=== PATIENT | female | born 1940 | race Caucasian/White ===

== ENCOUNTER 2017-11-20 12:04 | Outpatient (CLI) | payer MEDICARE ==
[2017-11-20 13:20] LABS: Hemoglobin 7.8 g/dL (12.0-16.0); Mean Corpuscular HGB CONC 29.2 g/dL (32.0-36.0); Mean Corpuscular Hemoglobin 18.7 pg (27.0-31.0); Mean Platelet Volume 4.3 fL (7.4-10.4); Platelet Count 298 thou/uL (130-400); Red Blood Cell (RBC) Count 4.15 mill/uL (4.20-5.40); White Blood Cell (WBC) Count 7.2 thou/uL (4.8-10.8)
[2017-11-20 13:22] LABS: INR-International Normal Ratio 1.1
[2017-11-20 13:26] LABS: PTT 26.4 SEC (22.9-36.1)
[2017-11-20 13:42] LABS: ALT (SGPT) 12 U/L (8-55); AST (SGOT) 19 U/L (5-34); Alkaline Phosphatase 47 U/L (40-150); Anion Gap 12 mmol/L (10-20); BUN (Urea Nitrogen) 10 mg/dL (9.8-20.1); Bilirubin, Total 1.1 mg/dL (0.2-1.2); Calc. Creatinine Clearance 0 mL/min (70-130); Carbon Dioxide 32 mmol/L (23-31); Chloride 101 mmol/L (98-107); Estimated GFR-MDRD 60; Globulin 2.5 g/dL (2.4-3.5); Glucose 116 mg/dL (83-110); Potassium 3.1 mmol/L (3.5-5.1); Protein, Total 6.5 g/dL (6.0-8.3); Sodium 142 mmol/L (136-145)
--- NOTE | 2017-12-03 22:51 | EKG ---
Test Reason : Blood Pressure : / mmHG Vent. Rate : 089 BPM Atrial Rate : 089 BPM P-R Int : 160 ms QRS Dur : 152 ms QT Int : 440 ms P-R-T Axes : 084 058 070 degrees QTc Int : 535 ms Normal sinus rhythm Possible Left atrial enlargement Left bundle branch block Abnormal ECG When compared with ECG of 11-OCT-2016 19:23, T wave inversion less evident in Lateral leads QT has lengthened Confirmed by Janice ELLER ([id number]) on 12/03/2017 10:51:20 PM Referred By: GUILHERME Confirmed By:Janice ELLER
== END 2017-11-20 12:05 | disposition home or self-care (01) ==
LOC: LABBT 12:04
PROVIDERS: ATTEND Internal Medicine Cardiovascular Disease
DX: Z01.818 Encounter for other preprocedural examination (principal); R06.02 Shortness of breath
CPT/HCPCS: 80053; 85027; 85610; 85730; 93005; 93010

== ENCOUNTER 2017-11-27 11:39 | Emergency (ER) | payer MEDICARE ==
[2017-11-27 12:17] LABS: #Eosinphils 0.1 thou/uL (0.0-0.7); #Lymphocytes 0.8 thou/uL (1.20-3.40); #Monocytes 0.4 thou/uL (0.11-0.59); #Neutrophils 5.3 thou/uL (1.40-6.50); %Basophils 0.3 % (0.0-1.0); %Eosinophils 1.5 % (0.0-10.0); %Lymphocytes 11.9 % (21.0-51.0); %Monocytes 5.7 % (0.0-10.0); %Neutrophils 80.6 % (42.0-75.0); Hemoglobin 8.3 g/dL (12.0-16.0); Mean Corpuscular Hemoglobin 18.6 pg (27.0-31.0); Mean Corpuscular Volume 64.2 fl (81.0-99.0); Platelet Count 312 thou/uL (130-400); RBC Distribution Width 18.7 % (11.5-14.5); Red Blood Cell (RBC) Count 4.46 mill/uL (4.20-5.40); White Blood Cell (WBC) Count 6.5 thou/uL (4.8-10.8)
[2017-11-27 12:33] LABS: Hypochromia MODERATE=16-30 cells (100X) (0-5/hpf); Microcytosis MODERATE=15-30 cells (100X) (0-5/hpf); Ovalocytes SLIGHT = 2-5 cells (100X) (0-1/hpf); PLT Morphology Comment Appears Adequate
[2017-11-27 12:38] LABS: ALT (SGPT) 13 U/L (8-55); AST (SGOT) 21 U/L (5-34); Albumin 4.2 g/dL (3.4-4.8); Alkaline Phosphatase 47 U/L (40-150); Anion Gap 11 mmol/L (10-20); BUN (Urea Nitrogen) 8 mg/dL (9.8-20.1); Bilirubin, Total 0.8 mg/dL (0.2-1.2); CK (CPK) 79 U/L (29-168); Calc. Creatinine Clearance 0 mL/min (70-130); Calcium 9.9 mg/dL (7.8-10.44); Carbon Dioxide 32 mmol/L (23-31); Chloride 102 mmol/L (98-107); Estimated GFR-MDRD 65; Globulin 2.6 g/dL (2.4-3.5); Glucose 105 mg/dL (83-110); Potassium 3.5 mmol/L (3.5-5.1); Protein, Total 6.8 g/dL (6.0-8.3); Sodium 141 mmol/L (136-145)
[2017-11-27 12:40] LABS: CKMB 2.8 ng/mL (0-6.6); Troponin I Less than 0.010 ng/mL (< 0.028)
--- NOTE | 2017-11-27 13:04 | RAD ---
PORTABLE CHEST 1 VIEW: Date: 11/27/17 Time: 1159 hours HISTORY: Chest pain. Shortness of breath. FINDINGS: Comparison made with exam of 10/11/16/ The heart size is normal. The aorta is tortuous. Stent in the proximal aorta is again seen. Lungs are well expanded with stable chronic change. No focal areas of consolidation, pneumothoraces, or pleura l effusions are seen. IMPRESSION: No acute process. POS: [facility]
--- NOTE | 2017-11-27 13:50 | CT ---
CTA AORTIC DISSECTION PROTOCOL UTILIZING iv CONTRAST AND 3D REFORMATTED IMAGING. INDICATION: History of chest pain and anemia. FINDINGS: No central pulmonary embolus is evident. No acute aortic stenosis, occlusion, or aneurysmal formatio n is noted. There is an endograft stent involving the proximal left ventricular outflow tract and pr oximal aorta. There are vascular calcifications involving the thoracic aorta. The aortic arch measu res 2.7 cm. The ascending aorta at the level of the right main pulmonary artery measures 3.7 cm. Th e descending thoracic aorta at the level of the right main pulmonary artery measures 2.3 cm. The triston iac and SMA are patent. Renal arteries bilaterally are patent. IRA is patent. There is scattered emphysema. There is a spiculated pulmonary nodule within the posterior segment of the right upper lobe measuring 1.6 x 1.8 cm. No additional suspicious pulmonary nodule is grossly e vident. There is scattered degenerative and osteoarthritic change. There is mild thoracolumbar curv ature. IMPRESSION: 1. No acute aortic stenosis, occlusion, or aneurysmal formation. 2. Severe emphysema. 3. Spiculated pulmonary nodule of the right upper lobe is suspicious for malignancy. Followup PET C T and pulmonary consultation is recommended. 4. Cholecystectomy. 5. Other chronic findings as above. POS: [facility]
[2017-11-27] MEDS ORDERED: ISOVUE-370 76%-LOCM 1 ML ONE (16:24)
== END 2017-11-27 15:02 | disposition home or self-care (01) ==
LOC: ERS 11:39
DX: D64.9 Anemia, unspecified (principal); R06.02 Shortness of breath; J44.9 Chronic obstructive pulmonary disease, unspecified; E78.5 Hyperlipidemia, unspecified; Z79.899 Other long term (current) drug therapy; Z79.82 Long term (current) use of aspirin
CPT/HCPCS: 36415; 71045; 71275; 80053; 82274; 82550; 82553; 84484; 85025; 85060; 86850; 86900; 86901; 93005; 94760

== ENCOUNTER 2017-12-01 12:40 | Inpatient (IN) | payer MEDICARE ==
[2017-12-01 13:27] LABS: #Lymphocytes 0.5 thou/uL (1.20-3.40); #Monocytes 0.2 thou/uL (0.11-0.59); #Neutrophils 6.6 thou/uL (1.40-6.50); %Basophils 0.5 % (0.0-1.0); %Eosinophils 0.3 % (0.0-10.0); %Lymphocytes 6.8 % (21.0-51.0); %Monocytes 3.2 % (0.0-10.0); %Neutrophils 89.2 % (42.0-75.0); Hemoglobin 7.5 g/dL (12.0-16.0); Mean Corpuscular HGB CONC 28.9 g/dL (32.0-36.0); Mean Corpuscular Hemoglobin 18.3 pg (27.0-31.0); Mean Corpuscular Volume 63.3 fl (81.0-99.0); Mean Platelet Volume 4.5 fL (7.4-10.4); Platelet Count 270 thou/uL (130-400); RBC Distribution Width 18.9 % (11.5-14.5); White Blood Cell (WBC) Count 7.4 thou/uL (4.8-10.8)
[2017-12-01 13:39] LABS: PTT 28.7 SEC (22.9-36.1)
[2017-12-01 13:40] LABS: INR-International Normal Ratio 1.1
[2017-12-01 13:46] LABS: ALT (SGPT) 14 U/L (8-55); AST (SGOT) 21 U/L (5-34); Alkaline Phosphatase 44 U/L (40-150); Anion Gap 11 mmol/L (10-20); BUN (Urea Nitrogen) 9 mg/dL (9.8-20.1); Bilirubin, Total 0.7 mg/dL (0.2-1.2); Calc. Creatinine Clearance 0 mL/min (70-130); Calcium 9.7 mg/dL (7.8-10.44); Carbon Dioxide 32 mmol/L (23-31); Chloride 103 mmol/L (98-107); Estimated GFR-MDRD 67; Globulin 2.4 g/dL (2.4-3.5); Glucose 136 mg/dL (83-110); Lipase 34 U/L (8-78); Potassium 3.1 mmol/L (3.5-5.1); Protein, Total 6.4 g/dL (6.0-8.3); Sodium 143 mmol/L (136-145)
[2017-12-01 13:49] LABS: Hypochromia MODERATE=16-30 cells (100X) (0-5/hpf); MDiff Complete? YES; Microcytosis MARKED = >30 cells (100X) (0-5/hpf); Ovalocytes MODERATE= 6-15 cells (100X) (0-1/hpf); PLT Morphology Comment Appears Adequate; Polychromasia SLIGHT = 2-3 cells (100X) (0-2/hpf); Reflex for Review?? YES
[2017-12-01 13:50] LABS: CKMB 2.5 ng/mL (0-6.6); Troponin I Less than 0.010 ng/mL (< 0.028)
[2017-12-01] MEDS ORDERED: Potassium Chloride 20 MEQ TAB ONE (15:34)
--- NOTE | 2017-12-01 15:36 | PDOC.EVN ---
Event Note - Event Note Event Note: [id number] H&P Dictated chest pain cad anemia lung nodule htn plan: see orders
[2017-12-01] MEDS ORDERED: Acetaminophen 325 MG TAB PO PRN (15:37)
[2017-12-01 16:12] LABS: Bilirubin Negative (Negative); Blood, Urine Negative (Negative); Clarity TURBID (Clear); Glucose, Urine (Dipstick) Negative (Negative); Leukocyte Small (Negative); Nitrite Negative (Negative); Protein, Urine (Dipstick) Negative (Neg-Trace); Specific Gravity, Urine 1.015 (1.002-1.036); Urobilinogen 0.2 mg/dL (0.2-1.0)
[2017-12-01 16:13] LABS: Bacteria/HPF None Seen HPF (None Seen); Hyaline Casts/LPF 0-3 HYALINE CAST LPF (0-3 Hyaline); Pathc Cast-AUWi Flag 0.43 (0-2.49); Squamous Epithelial 0-3 HPF (0-3)
[2017-12-01 16:21] LABS: Crystals/HPF 4+ AMORPH PHOS HPF (Negative)
[2017-12-01 16:22] LABS: Renal Epithelial None Seen HPF (0-3); Transitional Epithelial NONE SEEN HPF (0-3)
[2017-12-01 16:26] LABS: Troponin I 0.011 ng/mL (< 0.028)
[2017-12-01] MEDS ORDERED: Azithromycin 500 MG in Sodium Chloride 0.9% 250 ML 250 ML IVPB SCH (18:00)
[2017-12-01] MEDS: Mometasone/Formoterol 120 PUFF INHALER INH SCH (19:28)
[2017-12-01] MEDS: Rosuvastatin 20 MG TAB PO SCH (22:05)
[2017-12-01 22:29] VITALS: BMI 21.4
[2017-12-01 22:42] LABS: Troponin I Less than 0.010 ng/mL (< 0.028)
[2017-12-02 05:15] LABS: #Basophils 0.1 thou/uL (0.0-0.2); #Eosinphils 0.2 thou/uL (0.0-0.7); #Lymphocytes 1.3 thou/uL (1.20-3.40); #Monocytes 0.5 thou/uL (0.11-0.59); %Basophils 1.2 % (0.0-1.0); %Eosinophils 3.6 % (0.0-10.0); %Lymphocytes 25.8 % (21.0-51.0); %Monocytes 9.4 % (0.0-10.0); %Neutrophils 60.1 % (42.0-75.0); Hemoglobin 7.6 g/dL (12.0-16.0); Mean Corpuscular HGB CONC 29.6 g/dL (32.0-36.0); Mean Corpuscular Hemoglobin 19.4 pg (27.0-31.0); Mean Corpuscular Volume 65.6 fl (81.0-99.0); Mean Platelet Volume 4.5 fL (7.4-10.4); Platelet Count 234 thou/uL (130-400); RBC Distribution Width 20.4 % (11.5-14.5); Red Blood Cell (RBC) Count 3.89 mill/uL (4.20-5.40)
[2017-12-02 05:22] LABS: Anion Gap 6 mmol/L (10-20); BUN (Urea Nitrogen) 11 mg/dL (9.8-20.1); Calc. Creatinine Clearance 54 mL/min (70-130); Calcium 8.5 mg/dL (7.8-10.44); Carbon Dioxide 34 mmol/L (23-31); Chloride 106 mmol/L (98-107); Estimated GFR-MDRD 75; Glucose 85 mg/dL (83-110); Potassium 3.7 mmol/L (3.5-5.1); Sodium 142 mmol/L (136-145)
[2017-12-02 05:41] LABS: Troponin I Less than 0.010 ng/mL (< 0.028)
[2017-12-02] MEDS: Mometasone/Formoterol 120 PUFF INHALER INH SCH ×2 (06:37→22:55)
[2017-12-02] MEDS ORDERED: Spiriva 18 MCG CAP (Box of 5 Caps) INH SCH (09:00)
[2017-12-02] MEDS: Azithromycin 250 MG TAB PO SCH (09:08)
--- NOTE | 2017-12-02 13:59 | PDOC.PN ---
- Subjective Encounter Start Date: 12/02/17 Encounter Start Time: 08:40 Pt seen for followup re: anemia. Denies chest pain. SOBOE+. - Objective MAR Reviewed: Yes Vital Signs & Weight: Vital Signs (12 hours) Temp Pulse Resp BP Pulse Ox 12/02/17 13:30 74 16 97 12/02/17 11:30 98.4 F 84 16 112/56 L 95 12/02/17 09:56 78 16 98 12/02/17 08:10 98.1 F 77 16 95 12/02/17 08:08 98.1 F 77 16 149/66 H 12/02/17 06:37 83 16 97 12/02/17 06:35 83 16 97 12/02/17 04:00 98.0 F 75 18 136/63 97 Weight Admit Weight 125 lb Weight 125 lb I&O: 12/01/17 12/02/17 12/03/17 06:59 06:59 06:59 Intake Total 490 0 Output Total 250 Balance 240 0 Result Diagrams: 12/02/17 22:40 12/02/17 05:01 EKG Reviewed by me: Yes (Tele: NSR) Phys Exam - Physical Examination Constitutional: NAD HEENT: PERRLA, moist MMs, sclera anicteric, oral pharynx no lesions Neck: no nodes, no JVD, supple, full ROM Respiratory: no wheezing, no rales, no rhonchi, clear to auscultation bilateral Decreased air entry deborah bases Cardiovascular: RRR, no rub Gastrointestinal: soft, non-tender, no distention, positive bowel sounds Neurological: moves all 4 limbs Psychiatric: normal affect Dx/Plan (1) Anemia Code(s): D64.9 - ANEMIA, UNSPECIFIED Status: Acute Comment: For scope studies today; Hb improved to 9.6 yesterday, check labs tomorrow. s/p PRBC transfusion. (2) Lung nodule Code(s): R91.1 - SOLITARY PULMONARY NODULE Status: Acute Comment: Pulmonology following (3) COPD (chronic obstructive pulmonary disease) Status: Chronic Comment: stable (4) Dyslipidemia Code(s): E78.5 - HYPERLIPIDEMIA, UNSPECIFIED Status: Chronic Comment: on statin (5) GERD (gastroesophageal reflux disease) Code(s): K21.9 - GASTRO-ESOPHAGEAL REFLUX DISEASE WITHOUT ESOPHAGITIS Status: Chronic Comment: continue PPI (6) RLS (restless legs syndrome) Status: Chronic - Plan * . Review of Systems - Review of Systems Constitutional: negative: fever, chills, sweats, weakness, malaise Respiratory: Cough, Shortness of Breath, SOB with Excertion. negative: Hemoptysis, Pleuritic Pain, Wheezing Cardiovascular: negative: chest pain, palpitations, orthopnea, paroxysmal nocturnal dyspnea, edema, light headedness Gastrointestinal: negative: Nausea, Vomiting, Abdominal Pain, Diarrhea, Constipation, Melena, Hematochezia Genitourinary: negative: Dysuria, Frequency, Incontinence, Hematuria, Retention - Medications/Allergies Allergies/Adverse Reactions: Allergies Allergy/AdvReac Type Severity Reaction Status Date / Time cephalexin Allergy Verified 11/20/17 12:29 levofloxacin [From Levaquin] Allergy Verified 11/20/17 12:29 pravastatin [From Pravachol] Allergy Verified 11/20/17 12:29 Medications: Current Medications Acetaminophen (Tylenol) 650 mg PO Q4H PRN PRN Reason: Headache/Fever or Pain Albuterol/Ipratropium (Duoneb) 3 ml NEB QID-RT [facility] Last Admin: 12/02/17 13:30 Dose: 3 ml Aspirin (Aspirin Chewable) 81 mg PO DAILY [facility] Last Admin: 12/02/17 09:08 Dose: 81 mg Azithromycin (Zithromax) 250 mg PO DAILY [facility] Stop: 12/05/17 09:01 Last Admin: 12/02/17 09:08 Dose: 250 mg Isosorbide Mononitrate (Imdur Er) 30 mg PO DAILY [facility] Last Admin: 12/02/17 09:08 Dose: 30 mg Mometasone Furoate/Formoterol Fumar (Dulera 100 Mcg/5 Mcg Inhaler) 2 puff INH BID-RT [facility] Last Admin: 12/02/17 06:37 Dose: 2 puff Pantoprazole Sodium (Protonix) 40 mg PO DAILY [facility] Last Admin: 12/02/17 09:08 Dose: 40 mg Rosuvastatin Calcium (Crestor) 20 mg PO HS [facility] Last Admin: 12/01/17 22:05 Dose: 20 mg
--- NOTE | 2017-12-02 14:06 | HP ---
DATE OF ADMISSION: 12/01/2017 CHIEF COMPLAINT: Dyspnea, chest pain. HISTORY OF PRESENT ILLNESS: The patient is a 77-year-old female with past medical history of COPD, c hronic respiratory failure, coronary artery disease, gastritis, aortic stenosis, now came to the ER c omplaining of chest pain and dyspnea. The patient said she is having intermittent dyspnea and chest pain. The patient was diagnosed having anemia, so the patient went to the PCP for routine blood work and blood work showed she was anemic, so the patient was advised to come to the ER, chest pain persi sted, substernal, intermittent kind of pain, worsens with movement. Denies any radiation, complains of dyspnea even with minimal exertion. The patient also complains of cough, cough with sputum produc tion, sputum white in color. Denies fever, denies chills, denies nausea, denies any vomiting, denies any diarrhea, denies any dizziness, denies any palpations. PAST MEDICAL HISTORY: As per HPI. PAST SURGICAL HISTORY: Reviewed. SOCIAL HISTORY: Denies smoking, denies any alcohol, denies any drugs. FAMILY HISTORY: Positive for heart problems. MEDICATIONS: Reviewed. REVIEW OF SYSTEMS: Constitutional: Denies any fever, denies any chills. Positive for fatigue. Eye s: Denies vision problems. Ears: Denies any hearing loss. Neck: Denies any neck pain. Cardiovas cular System: Positive for chest pain. Respiratory System: Positive for cough and sputum productio n. Musculoskeletal: Denies any joint deformities. Cranial Nerve System: Denies syncope. Psychiat ry: Denies anxiety. Integumentary: Denies any rash. Genitourinary: Denies any dysuria. All othe r review of systems are reviewed and are negative. PHYSICAL EXAMINATION: CONSTITUTIONAL AND VITAL SIGNS: At the time of H and P performed, blood pressure is 125/56, pulse ox 95% on 3 L, respiratory rate 18. GENERAL: The patient appears tired. HEENT: Anterior naris patent. NECK: Supple, no JVD. CARDIOVASCULAR: S1, S2 present. Positive for murmur, no rubs, no gallops. RESPIRATORY: Diminished breath sounds present bilaterally. Positive for crackles. No wheezing, no rhonchi. GASTROINTESTINAL: Abdomen is soft, nontender, no guarding, no organomegaly, no masses felt. MUSCULOSKELETAL: No edema. CRANIAL NERVE SYSTEM: Awake, follows commands. Speech clear. PSYCHIATRIC: Mood is appropriate at this time. INTEGUMENTARY: No obvious rash seen. GENITOURINARY: No suprapubic tenderness. LABORATORY DATA: At the time of H and P performed, white count 7.4, hemoglobin 7.5, platelet count i s 270. PT 14, INR 1.1. Sodium 143, potassium 3.1, chloride 103, CO2 of 32, BUN of 9, creatinine 0.8 . Troponin less than 0.010. Has a CT chest recently done on 11/27, positive for severe emphysema an d positive for pulmonary nodule in the right upper lobe, suspicious for malignancy. ASSESSMENT AND PLAN: The patient is 77 years old female. 1. Acute on chronic anemia. Plan to type and cross and transfuse 1 unit of packed red blood cells a s the patient is symptomatic. Plan to monitor hemoglobin closely, plan to check stool occult blood, and plan to consult GI to evaluate the patient. 2. Chest pain, probably secondary to symptomatic anemia. Plan to check serial cardiac enzymes. Benedict n to consult Cardiology to evaluate the patient. 3. Lung nodule, rule out mass plus history of chronic obstructive pulmonary disease. Continue breat marissa treatments. Plan to start the patient on intravenous Zithromax and plan to consult Pulmonary to evaluate the patient and continue breathing treatments. 4. History of coronary artery disease. Continue home medications. Case was discussed in detail with the patient.
--- NOTE | 2017-12-02 14:14 | CON ---
DATE OF CONSULTATION: 12/02/2017 REASON FOR CONSULTATION: Chest pain and shortness of breath. HISTORY OF PRESENT ILLNESS: Ms. Frausto is a very pleasant 77-year-old woman with previous history of CAD, status post stent placement, in addition to a TAVR performed in [place]. She recently presented with shortness of breath. She was seen and evaluated in the office. She unde rwent noninvasive stress study that was negative for ischemia. She was treated medically and failed medical treatment. It was then decided to proceed with angiography. In the preop studies, patient d id have a hemoglobin of 7.5. It was decided that her shortness of breath was most likely related to her anemia and angiography was deferred. PAST MEDICAL HISTORY: As above including hyperlipidemia, previous tobacco abuse, COPD, cholecystecto my, hysterectomy, previous bleeding ulcer, anemia, asthma, acid reflux, TAVR. ALLERGIES: DEXAMETHASONE, PRAVASTATIN, CEPHALEXIN, IODINE, LEVOFLOXACIN. SOCIAL HISTORY: She is currently . No alcohol use. CURRENT HOME MEDICATIONS: Include Breo Ellipta, ipratropium, albuterol, Crestor, prednisone, Flonase , multivitamin, calcium, isosorbide dinitrate. REVIEW OF SYSTEMS: Ten-point review of systems is reviewed and as above, otherwise negative. PHYSICAL EXAMINATION: VITAL SIGNS: Blood pressure 112/56, pulse 84, temperature 98.4. GENERAL: Patient is a pleasant female, who is in no acute distress. The patient appears her stated age. VITAL SIGNS: NEUROLOGIC: The patient is alert and oriented times 3 with no focal neurologic deficits. HEENT: Sclerae without icterus. Mouth has moist mucous membranes with normal pallor. NECK: No JVD. Carotid upstroke brisk. No bruits bilaterally. LUNGS: Clear to auscultation with unlabored respirations. BACK: No scoliosis or kyphosis. CARDIAC: Regular rate and rhythm with normal S1 and S2. No S3 or S4 noted. No significant rubs, mu rmurs, thrills, or gallops noted throughout the precordium. PMI is not displaced. There is no blanco ternal heave. ABDOMEN: Soft, nontender, nondistended. No peritoneal signs present. No hepatosplenomegaly. No ab normal striae. EXTREMITIES: 2+ femoral and 2+ dorsalis pedis pulses. No cyanosis, clubbing, or edema. SKIN: No gross abnormalities. PERTINENT LABORATORY DATA: Hemoglobin 7.6, platelet count of 234, creatinine 0.75. IMPRESSION: 1. Shortness of breath. 2. Chest pressure. 3. Coronary artery disease. 4. Status post transcatheter aortic valve replacement . 5. Anemia. RECOMMENDATIONS: Ms. Frausto' symptoms are likely related to anemia. She is currently on aspirin only . She has a history of bleeding ulcers in the past. She has received 1 unit of packed red blood triston ls with no significant change in hemoglobin. She will likely require more packed red blood cells. E tiology will need to be sought and we will leave to the primary team. Otherwise, from a CV standpoin t, we would continue current medical therapy for secondary risk factor modification.
[2017-12-02 15:10] LABS: Hemoglobin 8.4 g/dL (12.0-16.0)
[2017-12-02] MEDS ORDERED: GoLYTELY 4,000 ml Bottle PO SCH (21:00)
[2017-12-02] MEDS: Rosuvastatin 20 MG TAB PO SCH (22:08)
[2017-12-02 22:51] LABS: Hemoglobin 9.6 g/dL (12.0-16.0)
--- NOTE | 2017-12-03 05:02 | CON ---
DATE OF CONSULTATION: 12/02/2017 REASON FOR CONSULTATION: Symptomatic anemia. CONSULTING PHYSICIAN: Gerhard Newberry M.D. HISTORY OF PRESENT ILLNESS: The patient is a 77-year-old female with past medical history of severe COPD, aortic stenosis, coronary artery disease, restless leg syndrome, congestive heart failure, esop hageal stricture and duodenal arteriovenous malformations, presenting with complaints of weakness and dizziness. She states that she has been having intermittent dyspnea as well as intermittent left-si ded chest pain that has been present for the last few months; however, she has been having more progr essive weakness, dizziness, and increased vomiting over the last 3-4 weeks that prompted her to seek her primary care physician. Upon routine labs, she was noted to have a significantly decreased H and H and was then prompted by her primary care physician to go to the ER for further evaluation. She a lso complains of increased cough with sputum production in addition to the above symptoms as well as dark solid stools, having approximately 1-2 solid bowel movements per day with no difficulty with def ecation. Of note, she said she was recently evaluated by her bolt machine operator for this left-sided chest pain with all cardiac workup negative thus far per Dr. Whittaker. Also of note, she has been taking aspirin 81 mg daily, as well as fluoxetine and steroids. On top of this, she had been intermittently taking naproxen as needed for general aches and pains. Per chart review, her most recent EGD was in 09/22/2014, with the finding of small duodenal arteriove nous malformations that were adequately treated. REVIEW OF SYSTEMS: Ten category review of systems was obtained with all responses negative except fo r the pertinent positives as listed in the HPI. PAST MEDICAL HISTORY: As per HPI. PAST SURGICAL HISTORY: Cholecystectomy, hysterectomy, and TAVR. FAMILY HISTORY: Denies any GI malignancy. SOCIAL HISTORY: Denies any tobacco, alcohol or illicit drug use. OUTPATIENT MEDICATIONS: Reviewed. ALLERGIES: DEXAMETHASONE, PRAVASTATIN, CEPHALEXIN, IODINE, and LEVOFLOXACIN. PHYSICAL EXAMINATION: VITAL SIGNS: Temperature of 98.9, pulse 80, blood pressure 165/72, respiratory rate 16, and satting 100% on room air. GENERAL: The patient is lying in bed with no acute distress. HEENT: Neck supple. No JVD noted. Increased scleral injection was noted within the left eye only. CARDIOVASCULAR: Regular rate and rhythm with no discernible murmurs, gallops or rubs. RESPIRATORY: Clear to auscultation in the bilateral lower lung ovalle; however, end expiratory wheez es were heard in the bilateral upper lung ovalle. ABDOMEN: Normoactive bowel sounds, soft, nontender, nondistended. EXTREMITIES: No cyanosis, clubbing or edema. LABORATORY DATA: CBC with a white blood cell count of 5, hemoglobin 7.6, hematocrit 25.6, platelets 234. Chemistry with a sodium 142, potassium 3.7, chloride 106, CO2 of 34, BUN 11, creatinine 0.75, g lucose 85, AST 21, ALT 14, alkaline phosphatase 44, total bilirubin 0.7. INR 1.1. IMAGING DATA: No current GI imaging is available for review. ASSESSMENT AND PLAN: The patient is a 77-year-old female with past medical history of chronic obstru ctive pulmonary disease, aortic stenosis, coronary artery disease, restless leg syndrome, congestive heart failure, esophageal stricture and duodenal arteriovenous malformations in 08/2014, presenting w ith symptomatic anemia. Symptomatic anemia. The patient is presenting with increased weakness, dizziness, left-sided chest p ain as well as intermittent progressively worsening vomiting over the last 2-3 weeks that is associat ed with a significant decrease in her H and H from baseline. She also endorses 1-2 dark solid stools which are somewhat concerning for melena, but do not necessarily fit this clinical picture. However , she is currently taking aspirin, naproxen, fluoxetine and steroids, which could all potentially gen erate irritation of the upper gastrointestinal tract and bleeding in and of themselves or in combinat ion. She was also noted to have a spiculated lung lesion on most recent imaging which is concerning for metastatic spread with a possible colonic primary, but if that were so, then one would think that the liver would also be effective making this diagnosis a lot less likely. RECOMMENDATIONS: 1. Would continue to trend H and H and transfuse as necessary to maintain an H and H of 03/14. 2. Please place the patient n.p.o. at midnight with colonoscopy prep tonight in preparation for both EGD and colonoscopy tomorrow. 3. Continue to monitor for clinical signs of GI bleeding. We will continue to follow. Please call with any questions.
[2017-12-03] MEDS: Mometasone/Formoterol 120 PUFF INHALER INH SCH ×2 (07:26→20:48)
[2017-12-03] MEDS: Azithromycin 250 MG TAB PO SCH (08:23)
--- NOTE | 2017-12-03 08:34 | PDOC.CTH ---
Cardiology Progress Note - Subjective No complaints. Feeling much better overall. - ROS shortness of breath - Objective Vital Signs Temp Pulse Resp BP Pulse Ox 12/03/17 07:28 76 16 98 12/03/17 07:26 76 16 98 12/03/17 07:06 97.9 F 76 16 96 12/03/17 07:05 97.9 F 76 16 143/64 H 96 12/03/17 04:00 98.1 F 76 16 146/65 H 96 12/03/17 03:55 97 12/02/17 22:56 78 20 97 12/02/17 22:55 78 20 97 Admit Weight 125 lb Weight 123 lb 4.8 oz 12/02/17 12/03/17 12/04/17 06:59 06:59 06:59 Intake Total 490 6380 Output Total 250 1175 Balance 240 5205 - Physical Examination General/Neuro: alert & oriented x3 Neck: no JVD present Lungs: other: (decreased BS bilaterally) Heart: RRR Abdomen: NT/ND Extremities: other: (No edema) - Telemetry Telemetry Rhythm: SR, LBBB - Labs Result Diagrams: 12/02/17 22:40 12/02/17 05:01 Troponin/CKMB CK-MB (CK-2) 2.5 ng/mL (0-6.6) 12/01/17 13:20 Troponin I Less than 0.010 ng/mL (< 0.028) 12/02/17 05:01 - Assessment/Plan 1. Acute Anemia - s/p transfusion. Plan for EGD/colonoscopy today. 2. SOB - most likely secondary to anemia. 3. CAD s/p PCI - stable 4. s/p TAVR - stable 5. COPD - unchanged
--- NOTE | 2017-12-03 09:21 | CON ---
DATE OF CONSULTATION: 12/02/2017 HISTORY OF PRESENT ILLNESS: Naomy Frausto is a 77-year-old female, who was seen in the ER last night w ith shortness of breath, weakness, dizziness, and apparently anemia. Primary care physician was call ed yesterday because she was anemic. She was sent over here. She has seen a local final inspector motorcyles. Apparently, there is some concern about her having a valvular pro blem. Some kind of procedure was planned, but because of her anemia, procedure was held. Her H and H has been 7.5, 26. Apparently, she received a unit of packed cells. It does not look like it is much done to her H and H. This morning, her H and H is 7.5 and 26 after receiving a unit of packed cells. She denies any a bdominal pain, GI blood loss. She has seen a director clinical information services 3 years ago, underwent endoscopy. This morning, she says she is feeling better. There is cough, wheezing, orthopnea, or PND. Patient has longstanding history of tobacco abuse, quit smoking many years ago. She has severe limit ation to activity. She can barely walk 20 feet without getting marked short of breath. PAST MEDICAL HISTORY: End-stage chronic obstructive pulmonary disease, hyperlipidemia, and aortic va lvular disease. PAST SURGICAL HISTORY: Gallbladder, cystectomy. MEDICATIONS: List of medicine from home, DuoNeb, Breo, ISMO, prednisone 5, Crestor 20. ALLERGIES: LEVAQUIN and PRAVACHOL. SOCIAL HISTORY: As noted, former smoker, quit smoking years ago. No alcohol. REVIEW OF SYSTEMS: Otherwise, 10-point negative. PHYSICAL EXAMINATION: VITAL SIGNS: Blood pressure is 149/66, sats at 97.2 liters, respiration 16, temperature 98, and puls e 77. CHEST: No wheezing, no crackles. CARDIAC: Normal S1 and S2. No gallops. ABDOMEN: Soft, without masses. LABORATORY DATA: H and H 7 and 26, platelet count 270. Chemistry profile shows otherwise normal laura ctrolytes, bicarbonate was 34. X-rays noted shows no acute infiltrates, but CT chest shows a right upper lung posterior segment, silva y small nodule measuring at 1.6 x 1.8 cm . IMPRESSION: 1. Right upper lung pulmonary nodule, measuring 1.6 x 1.8 cm. 2. Severe chronic obstructive pulmonary disease. 3. Anemia. 4. Major anxiety. PLAN: Regarding the upper lung nodule, at this stage, too small to undergo any kind of interventiona l procedure. Additionally, she has got very severe COPD. If she can try to do any obtain biopsies. Best option is to follow up with a CAT scan every 3 months. A size growing obviously is neoplastic. At that time, the best option would be radiation therapy. The patient was told about this. I discussed at length. She understands. Regarding her anemia, wor kup is in progress. She received a unit of packed cells, probably transfuse another unit of packed c ells. Otherwise, continue neb treatments, Dulera. We will follow. Consult time of 70 minutes in which 50% was direct patient care.
--- NOTE | 2017-12-03 09:24 | PRG ---
DATE OF SERVICE: 12/03/2017 The patient is a 77-year-old female. This morning she is better, less short of breath. H&H is 9.6 and 31. PHYSICAL EXAMINATION: VITAL SIGNS: Blood pressure is 143/64, sats are 95% on 2 liters, temperature 98, respiration 16, pul se 76. CHEST: Chest revealed decreased breath sounds, no wheezing. CARDIAC: Normal S1-S2. No gallops. ABDOMEN: Soft. No masses. IMPRESSION: 1. Anemia, possible GI bleed. 2. Aortic stenosis. 3. Severe chronic obstructive pulmonary disease. 4. Right lung nodule. PLAN: From a pulmonary standpoint of view, she appears to be stable. She is going to undergo endosc opy today. Further disposition as per the GI. In the meantime, continue neb treatments, Dulera.
[2017-12-03] MEDS ORDERED: Lidocaine 1% PF 5 ML VIAL ONE (15:18)
[2017-12-03] MEDS ORDERED: PROPOFOL 200 MG/20 ML VIAL ONE ×2 (15:18)
[2017-12-03] MEDS ORDERED: Meperidine HCl/PF 25 MG/ML VIAL SLOW IVP PRN (17:06)
[2017-12-03] MEDS ORDERED: Morphine Sulfate 2 MG/ML SYRINGE SLOW IVP PRN (17:06)
[2017-12-03] MEDS ORDERED: Promethazine HCl 25 MG/ML VIAL IM PRN (17:06)
[2017-12-03] MEDS ORDERED: Ondansetron HCl/PF 4 MG/2 ML Vial IVP PRN (17:06)
[2017-12-03] MEDS ORDERED: Promethazine HCl 25 MG/ML VIAL SLOW IVP PRN (17:06)
--- NOTE | 2017-12-03 17:27 | PDOC.PN ---
- Subjective Encounter Start Date: 12/03/17 Encounter Start Time: 09:00 Pt seen ofr followup re: anemia. Feels about the same as yesterday. No fevers or chills. - Objective Vital Signs & Weight: Vital Signs (12 hours) Temp Pulse Resp BP Pulse Ox 12/03/17 15:33 98.2 F 78 20 126/57 L 95 12/03/17 14:27 78 18 98 12/03/17 12:29 98.5 F 79 16 118/58 L 94 L 12/03/17 10:47 95 16 93 L 12/03/17 07:28 76 16 98 12/03/17 07:26 76 16 98 12/03/17 07:06 97.9 F 76 16 96 12/03/17 07:05 97.9 F 76 16 143/64 H 96 Weight Admit Weight 125 lb Weight 123 lb 4.8 oz I&O: 12/02/17 12/03/17 12/04/17 06:59 06:59 06:59 Intake Total 490 6380 Output Total 250 1175 Balance 240 5205 Result Diagrams: 12/02/17 22:40 12/02/17 05:01 Phys Exam - Physical Examination Constitutional: NAD HEENT: PERRLA, moist MMs, sclera anicteric, oral pharynx no lesions Neck: no nodes, no JVD, supple, full ROM Respiratory: no rales, no rhonchi Occ exp wheeze Cardiovascular: RRR, no rub Gastrointestinal: soft, non-tender, no distention, positive bowel sounds Neurological: moves all 4 limbs Psychiatric: normal affect Dx/Plan (1) Anemia Code(s): D64.9 - ANEMIA, UNSPECIFIED Status: Acute Comment: For scope studies today; Hb improved to 9.6 yesterday, check labs tomorrow. s/p PRBC transfusion. (2) Lung nodule Code(s): R91.1 - SOLITARY PULMONARY NODULE Status: Acute Comment: Pulmonology following (3) COPD (chronic obstructive pulmonary disease) Status: Chronic Comment: stable (4) Dyslipidemia Code(s): E78.5 - HYPERLIPIDEMIA, UNSPECIFIED Status: Chronic Comment: on statin (5) GERD (gastroesophageal reflux disease) Code(s): K21.9 - GASTRO-ESOPHAGEAL REFLUX DISEASE WITHOUT ESOPHAGITIS Status: Chronic Comment: continue PPI (6) RLS (restless legs syndrome) Status: Chronic - Plan * . Review of Systems - Review of Systems Constitutional: weakness. negative: fever, chills, sweats, malaise Respiratory: Cough, Shortness of Breath, SOB with Excertion. negative: Hemoptysis, Pleuritic Pain, Wheezing Cardiovascular: negative: chest pain, palpitations, orthopnea, paroxysmal nocturnal dyspnea, edema, light headedness Gastrointestinal: negative: Nausea, Vomiting, Abdominal Pain, Diarrhea, Constipation, Melena, Hematochezia Genitourinary: negative: Dysuria, Frequency, Incontinence, Hematuria, Retention Skin: negative: Rash, Lesions, Rocky, Bruising - Medications/Allergies Allergies/Adverse Reactions: Allergies Allergy/AdvReac Type Severity Reaction Status Date / Time cephalexin Allergy Verified 11/20/17 12:29 levofloxacin [From Levaquin] Allergy Verified 11/20/17 12:29 pravastatin [From Pravachol] Allergy Verified 11/20/17 12:29 Medications: Current Medications Acetaminophen (Tylenol) 650 mg PO Q4H PRN PRN Reason: Headache/Fever or Pain Albuterol/Ipratropium (Duoneb) 3 ml NEB QID-RT [facility] Last Admin: 12/03/17 14:27 Dose: 3 ml Aspirin (Aspirin Chewable) 81 mg PO DAILY [facility] Last Admin: 12/02/17 09:08 Dose: 81 mg Azithromycin (Zithromax) 250 mg PO DAILY [facility] Stop: 12/05/17 09:01 Last Admin: 12/03/17 08:23 Dose: 250 mg Isosorbide Mononitrate (Imdur Er) 30 mg PO DAILY [facility] Last Admin: 12/03/17 08:23 Dose: 30 mg Meperidine HCl (Pacu-Demerol) 12.5 mg SLOW IVP ONE PRN PRN Reason: Shivering Stop: 12/03/17 20:06 Mometasone Furoate/Formoterol Fumar (Dulera 100 Mcg/5 Mcg Inhaler) 2 puff INH BID-RT [facility] Last Admin: 12/03/17 07:26 Dose: 2 puff Morphine Sulfate (Pacu-Morphine Sulfate) 2 mg SLOW IVP Q10MIN PRN PRN Reason: Moderate to Severe Pain (6-10) Stop: 12/03/17 20:06 Ondansetron HCl (Pacu-Zofran) 4 mg IVP ONE PRN PRN Reason: Nausea/Vomiting Stop: 12/03/17 20:06 Pantoprazole Sodium (Protonix) 40 mg PO DAILY [facility] Last Admin: 12/03/17 08:23 Dose: 40 mg Promethazine HCl (Pacu-Phenergan) 6.25 mg SLOW IVP ONE PRN PRN Reason: Nausea/Vomiting Stop: 12/03/17 20:06 Promethazine HCl (Pacu-Phenergan) 6.25 mg IM ONE PRN PRN Reason: Nausea/Vomiting Stop: 12/03/17 20:06 Rosuvastatin Calcium (Crestor) 20 mg PO HS [facility] Last Admin: 12/02/17 22:08 Dose: 20 mg
--- NOTE | 2017-12-03 20:47 | OP ---
DATE OF PROCEDURE: 12/03/2017 GI ENDOSCOPY NOTE SURGEON: Beltran Odom M.D. PLANT [employer]PER[employer] WORKER SURGEON: None. PROCEDURES: 1. Esophagogastroduodenoscopy, diagnostic. 2. Colonoscopy with snare polypectomy. INDICATION: 1. Symptomatic anemia. 2. History of duodenal arteriovenous malformations. 3. Last colonoscopy in 2010. 4. History of colon polyps on prior colonoscopy. MEDICATIONS: See anesthesia record. FINDINGS: After discussion of the risks, benefits and alternatives of the procedure, informed consen t was obtained and witnessed. Pre-endoscopic cardiopulmonary examination was satisfactory. Timeout was performed before sedation was achieved. Sedation was achieved with anesthesia assistance in the endoscopy unit. A Pentax adult upper endoscope was placed into the oropharynx and passed through the cricopharyngeus under direct visualization. The esophageal mucosa appeared normal throughout. The endoscope was advanced into the stomach. Forward and retroflexed views of the entire gastric mucosa were obtained. The gastric mucosa appeared normal. The endoscope was advanced through the pylorus a nd into the first and second portions of the duodenum. In the superior portion of the duodenum bulb, there are a few small nonbleeding arteriovenous malformations. This had been visualized during her last upper endoscopy 3 years ago. There was no bleeding from this site. No old blood or active blee ding noted anywhere on this exam. The second portion of the duodenum was unremarkable. The upper en doscope was completely withdrawn and the patient was repositioned. Digital rectal exam was performed which was unremarkable. A Pentax adult colonoscope was inserted in to the anus and passed forward to the cecum in the usual fashion. The cecal base was identified by t he appendiceal orifice as well as the ileocecal valve. The terminal ileum was intubated and the ilea l mucosa appeared normal. The colonoscope was then slowly withdrawn in a gradual and circumferential manner with careful examination of the entire colonic mucosa. The quality of the prep was adequate. In the cecum, there was a medium-sized arteriovenous malformation. This was nonbleeding. I did no t note any other arteriovenous malformations throughout the length of the colon. No endoscopic thera py was applied as the AVM was in the cecum and was not actively bleeding. There was a 2-mm sessile p olyp in sigmoid colon. This was completely removed with cold snare, but it was not retrieved for pat hology. The remainder of the colonic mucosa appeared normal. Retroflexion in the rectum was normal. The colonoscope was completely withdrawn and the patient allowed to recover. The patient tolerated the procedure well. There were no immediate post-procedure complications. IMPRESSION: 1. A few small nonbleeding arteriovenous malformations in the duodenal bulb. 2. Otherwise, normal esophagogastroduodenoscopy. 3. Medium-sized arteriovenous malformation in the cecum, nonbleeding. 4. A 2-mm sigmoid colon polyp, removed with cold snare, not retrieved for pathology. 5. Otherwise, normal colonoscopy to the terminal ileum. RECOMMENDATIONS: 1. Advance diet. 2. I would recommend minimizing or avoiding nonsteroidal anti-inflammatory drugs, any anticoagulatio n, or any antiplatelet agents if possible going forward. It is likely that the patient has arteriove nous malformations throughout the small bowel as a contributor to her chronic anemia. 3. Please call back if needed.
[2017-12-03] MEDS: Rosuvastatin 20 MG TAB PO SCH (21:32)
[2017-12-04] MEDS: Mometasone/Formoterol 120 PUFF INHALER INH SCH (06:42)
[2017-12-04 07:54] LABS: Anion Gap 10 mmol/L (10-20); BUN (Urea Nitrogen) 8 mg/dL (9.8-20.1); Calc. Creatinine Clearance 55 mL/min (70-130); Calcium 8.7 mg/dL (7.8-10.44); Carbon Dioxide 31 mmol/L (23-31); Chloride 104 mmol/L (98-107); Estimated GFR-MDRD 77; Glucose 92 mg/dL (83-110); Potassium 3.7 mmol/L (3.5-5.1); Sodium 141 mmol/L (136-145)
[2017-12-04 07:56] LABS: Hemoglobin 8.9 g/dL (12.0-16.0); Mean Corpuscular HGB CONC 30.1 g/dL (32.0-36.0); Mean Corpuscular Hemoglobin 20.6 pg (27.0-31.0); Mean Corpuscular Volume 68.3 fl (81.0-99.0); Mean Platelet Volume 4.6 fL (7.4-10.4); Platelet Count 242 thou/uL (130-400); RBC Distribution Width 22.7 % (11.5-14.5); White Blood Cell (WBC) Count 5.5 thou/uL (4.8-10.8)
[2017-12-04 07:57] LABS: #Eosinphils 0.2 thou/uL (0.0-0.7); #Lymphocytes 1.1 thou/uL (1.20-3.40); #Monocytes 0.6 thou/uL (0.11-0.59); #Neutrophils 3.6 thou/uL (1.40-6.50); %Basophils 0.6 % (0.0-1.0); %Eosinophils 3.6 % (0.0-10.0); %Monocytes 10.6 % (0.0-10.0); %Neutrophils 65.3 % (42.0-75.0)
[2017-12-04] MEDS: Azithromycin 250 MG TAB PO SCH (08:32)
--- NOTE | 2017-12-04 11:12 | PRG ---
DATE OF SERVICE: 12/04/2017 This morning she is doing well. PHYSICAL EXAMINATION: VITAL SIGNS: Sats are 98 on 2 liters, respirations 16, temperature 99, blood pressure 150/67. Endoscopy was performed. Please review the note. A polyp was removed. There was a malformation justin t initially was seen. Her H&H is stable at 8.9 and 27, platelet count is normal. Electrolytes are normal. CHEST: Chest reveals decreased breath sounds, no wheezing. CARDIAC: Normal S1, S2, no gallops. ABDOMEN: Soft, no masses. IMPRESSION: 1. Gastrointestinal bleed. 2. Arteriovenous malformation, status post polypectomy. 3. Severe chronic obstructive pulmonary disease. 4. Right lung nodule. PLAN: Disposition home anytime. Follow up in the office regarding the lung nodule.
--- NOTE | 2017-12-04 13:14 | DIS ---
DATE OF ADMISSION: 12/01/2017 DATE OF DISCHARGE: 12/04/2017 PRIMARY CARE PHYSICIAN: Kassy Long M.D. DISCHARGE DIAGNOSES: 1. Anemia, likely secondary to acute blood loss. 2. Gastrointestinal arteriovenous malformations. 3. A 2 mm sigmoid colon polyp. 4. Lung nodule. CONSULTATIONS DURING THIS HOSPITALIZATION: Pulmonology, Dr. Linda; Cardiology, Dr. Whittaker; Gastroenterology, Dr. Prieto. CONDITION OF PATIENT ON THE DAY OF DISCHARGE: Stable. I assessed Ms. Frausto on the day of discharge. She denies any chest pain or shortness of breath. Vital signs are stable. S1 and S2 are heard, regular. Lungs are clear to auscultation bilaterally. DISCHARGE MEDICATIONS: Azithromycin 250 mg daily for 1 more day, Mucomyst 10% 3 mL inhalation 2 times a day, aspirin 81 mg daily, calcium carbonate/vitamin D 1 tablet daily, Breo one puff daily, DuoNeb 4 times a day, isosorbide mononitrate 30 mg daily, nitroglycerin p.r.n., and Crestor 20 mg at bedtime. HOSPITAL COURSE: Ms. Frausto is a pleasant 77-year-old lady, who was admitted to [facility] for anemia and a lung nodule. She was seen by Pulmonology, Gastroenterology, and Cardiology services. She underwent a bidirectional scope studies on 12/03/2017. She was found to have a few small nonbleeding AV malformations in the duodenal bulb, otherwise normal esophagogastroduodenoscopy, medium-sized AV malformation in the cecum, nonbleeding, 2 mm sigmoid colon polyp, removed with cold snare, not retrieved for pathology, otherwise normal colonoscopy to the terminal ileum. She is advised to avoid nonsteroidal anti-inflammatory drugs, anticoagulation or any antiplatelet agents if possible going forward. Cardiology service recommends continuing low-dose aspirin, and to avoid Plavix. Gastroenterology service feels that she probably has AV malformations throughout the small bowel and has contributed to her chronic anemia. She also received packed RBC transfusions during this hospitalization. On the day of discharge, she has a white count of 5500, hemoglobin 8.9, platelet count 242,000. Creatinine 0.73, sodium 141, and potassium 3.7. She is receiving 1 unit of packed RBC prior to discharge home. Many thanks for allowing me to participate in your patient's care. Please feel free to contact me with any questions or concerns. DISCHARGE DESTINATION: Home. TOTAL AMOUNT OF TIME SPENT COORDINATING THIS DISCHARGE: 33 minutes. ADRIENNE
--- NOTE | 2017-12-04 14:45 | PRG ---
DATE OF SERVICE: 12/04/2017 SUBJECTIVE: Ms. Frausto is doing well. She feels better. Her hemoglobin is stabilized. OBJECTIVE: VITAL SIGNS: Blood pressure 155/67, pulse 60, temperature 98. LUNGS: Clear to auscultation. CARDIAC: Regular rate and rhythm. ABDOMEN: Soft, nontender, nondistended. EXTREMITIES: No edema. PERTINENT LABORATORY DATA: Hemoglobin 8.9. IMPRESSION: 1. Anemia. 2. Shortness of breath. 3. Coronary artery disease. 4. Status post stent placement. 5. Status post transcatheter aortic valve replacement. RECOMMENDATIONS: At this point, I have no further cardiac recommendations. We would recommend a low dose aspirin given his previous history of stent placement. No Plavix. If she does not rebleed, wo uld have to stop aspirin altogether. Her stents were placed 3 years ago. Risk of subacute thrombosi s is low, but still noted. This has to be weighed against the risk of continued bleeding. Otherwise , I have no further recommendations. Plans to follow up in the office in the next 1-2 weeks.
[2017-12-04 16:45] VITALS: BP 133/60; TEMP 98.5
--- NOTE | 2018-01-09 15:38 | EKG ---
Test Reason : Blood Pressure : / mmHG Vent. Rate : 089 BPM Atrial Rate : 089 BPM P-R Int : 158 ms QRS Dur : 146 ms QT Int : 424 ms P-R-T Axes : 066 003 120 degrees QTc Int : 515 ms Normal sinus rhythm Possible Left atrial enlargement Left bundle branch block Abnormal ECG Confirmed by STEPH TONEY, GONZALEZ ([id number]), features editor NICOLE ANDREWS ([id number]) on 01/09/2018 3:37:55 PM Referred By: Confirmed By:GONZALEZ CHOI MD
== END 2017-12-04 17:28 | disposition home or self-care (01) | DRG 812 ==
LOC: ERS 12:40 → 2NO 15:10
PROVIDERS: ADMIT Internal Medicine; ATTEND Internal Medicine
PROC: 30233N1 Transfusion of Nonautologous Red Blood Cells into Peripheral Vein, Percutaneous Approach (ICD-10-PCS; 2017-12-01)
PROC: 0DJ08ZZ Inspection of Upper Intestinal Tract, Via Natural or Artificial Opening Endoscopic (ICD-10-PCS; principal; 2017-12-03)
PROC: 0DBN8ZZ Excision of Sigmoid Colon, Via Natural or Artificial Opening Endoscopic (ICD-10-PCS; 2017-12-03)
DX: D62 Acute posthemorrhagic anemia (principal); J96.10 Chronic respiratory failure, unspecified whether with hypoxia or hypercapnia; J44.9 Chronic obstructive pulmonary disease, unspecified; K31.819 Angiodysplasia of stomach and duodenum without bleeding; I25.10 Atherosclerotic heart disease of native coronary artery without angina pectoris; K55.20 Angiodysplasia of colon without hemorrhage; R91.1 Solitary pulmonary nodule; F41.9 Anxiety disorder, unspecified; K21.9 Gastro-esophageal reflux disease without esophagitis; G25.81 Restless legs syndrome; Z87.891 Personal history of nicotine dependence; Z88.1 Allergy status to other antibiotic agents; Z88.8 Allergy status to other drugs, medicaments and biological substances; Z79.82 Long term (current) use of aspirin; Z79.52 Long term (current) use of systemic steroids; Z79.899 Other long term (current) drug therapy; Z95.2 Presence of prosthetic heart valve; Z95.5 Presence of coronary angioplasty implant and graft
CPT/HCPCS: 36415; 36430; 80048; 80053; 81003; 81015; 82274; 82553; 83690; 84484; 85025; 85060; 85610; 85730; 86850; 86900; 86901; 87086; 93005; 94640; 94664; 99214; G0463; J0456; J2001; J2704; J7050; J7620; P9016

== ENCOUNTER 2018-03-06 22:09 | Inpatient (IN) | payer MEDICARE ==
[2018-03-06 22:41] LABS: #Lymphocytes 0.5 thou/uL (1.20-3.40); #Monocytes 1.1 thou/uL (0.11-0.59); #Neutrophils 9.2 thou/uL (1.40-6.50); %Eosinophils 0.3 % (0.0-10.0); %Lymphocytes 4.6 % (21.0-51.0); %Monocytes 10.1 % (0.0-10.0); %Neutrophils 85.1 % (42.0-75.0); Mean Corpuscular HGB CONC 32.3 g/dL (32.0-36.0); Mean Corpuscular Hemoglobin 30.2 pg (27.0-31.0); Mean Corpuscular Volume 93.5 fL (78.0-98.0); Platelet Count 210 thou/uL (130-400); RBC Distribution Width 15.1 % (11.5-14.5); Red Blood Cell (RBC) Count 3.63 mill/uL (4.20-5.40); White Blood Cell (WBC) Count 10.8 thou/uL (4.8-10.8)
[2018-03-06] MEDS ORDERED: methylPREDNISolone Sod Succ/PF 125 MG/2 ML VIAL ONE (22:46)
--- NOTE | 2018-03-06 22:46 | RAD ---
AP VIEW CHEST: 03/06/18 HISTORY: Difficulty breathing. Fever of 102. AP view chest is obtained and compared to previous exam from 11/27/17. AP view chest demonstrates some moderate pulmonary vascular congestion. No evidence of effusion, pneu monia or pneumothorax seen. IMPRESSION: Pulmonary vascular congestion otherwise unremarkable AP view chest. POS: [facility]
[2018-03-06 23:00] LABS: ALT (SGPT) 15 U/L (8-55); AST (SGOT) 20 U/L (5-34); Alkaline Phosphatase 59 U/L (40-150); Anion Gap 14 mmol/L (10-20); BUN (Urea Nitrogen) 19 mg/dL (9.8-20.1); Calc. Creatinine Clearance 0 mL/min (70-130); Calcium 9.2 mg/dL (7.8-10.44); Carbon Dioxide 28 mmol/L (23-31); Chloride 102 mmol/L (98-107); Estimated GFR-MDRD 53; Globulin 2.8 g/dL (2.4-3.5); Glucose 116 mg/dL (83-110); Potassium 3.3 mmol/L (3.5-5.1); Protein, Total 6.8 g/dL (6.0-8.3); Sodium 141 mmol/L (136-145)
[2018-03-06 23:05] LABS: CKMB 3.4 ng/mL (0-6.6); Troponin I Less than 0.010 ng/mL (< 0.028)
[2018-03-06] MEDS ORDERED: Azithromycin 500 MG VIAL ONE (23:15)
[2018-03-07] MEDS ORDERED: Acetaminophen 325 MG TAB PO PRN (00:16)
--- NOTE | 2018-03-07 02:03 | HP ---
CHIEF COMPLAINT: Shortness of breath. HISTORY OF PRESENT ILLNESS: The patient is a 77-year-old female with past medical history of COPD on 3 liters of oxygen at home, has a history of aortic stenosis, gastritis, and also recent upper GI bl eed, who presents to the hospital with complaints of shortness of breath for the past 3 days. The pa cherise stated that she does have grandkids at home who have been sick. She started noticing having sh ortness of breath, starting on Friday. Patient states that, normally she is able to walk from her b ed to the bathroom, but however, she was even unable to do so without getting very short of breath. Patient states that she did feel feverish at home. She has been taking her DuoNeb at home, however, which did not help. Denies any chest pain, any nausea, vomiting, diarrhea or any abdominal pain. PAST MEDICAL HISTORY: She has a history of COPD, coronary artery disease, gastritis, aortic stenosis , and also AV malformations in her GI system. PAST SURGICAL HISTORY: She has a surgical history of cholecystectomy. SOCIAL HISTORY: She denies any smoking, alcohol, or drug use. FAMILY HISTORY: Positive for heart disease. MEDICATIONS: The patient takes isosorbide 30 mg daily. She takes aspirin 81 mg daily. She takes Br eo 1 puff daily. She takes DuoNeb q.i.d. p.r.n. She also takes rosuvastatin 20 mg daily. REVIEW OF SYSTEMS: All negative except for the ones mentioned above in the HPI. PHYSICAL EXAMINATION: VITAL SIGNS: She was noted to have a fever of 102 in the ER. Respirations are 18-20, pulse of 90, 1 . She was initially hypoxic 78% on 3 liters; however, upon giving her 4 liters, she went up to 98%. GENERAL: She is awake, alert, very short of breath, unable to speak complete sentences. HEENT: Normocephalic, atraumatic. NECK: No lymphadenopathy noted. CARDIOVASCULAR: S1, S2 present. No murmurs, rubs, or gallops. LUNGS: She has got mild expiratory wheeze. Diminished breath sounds all over. ABDOMEN: Soft, nontender. Bowel sounds are present x2. EXTREMITIES: No edema. Pedal pulses are present x2. NEUROLOGIC: No deficits noted. SKIN: She has got a little bruises around her lower extremities only. LABORATORY AND DIAGNOSTIC DATA: As the following her white count is 10.8, hemoglobin of 11.0, hemato crit of 33.9, platelets of 210,000. She has no bands noted. Chemistry: Sodium of 141, potassium of 3.3, BUN of 19, creatinine of 1. Troponin x1 is negative. She had a chest x-ray, which did not ind icate any acute pneumonia. ASSESSMENT AND PLAN: The patient is a very pleasant 77-year-old female who presents to the hospital with complaints of shortness of breath. 1. Chronic obstructive pulmonary disease exacerbation, most likely secondary to underlying viral bro nchitis. We will start patient on IV antibiotics for possible community-acquired pneumonia. We will also give her steroids. We will do DuoNeb and currently her oxygen is at 4 liters. We will also do a viral swab and the patient states that she has been coughing up some yellow phlegm. We will also check a culture for her sputum. 2. Hypokalemia. We will replace. 3. History of coronary artery disease. We will continue her aspirin and statin. 4. Given the patient's history of arteriovenous malformation and gastrointestinal bleed, we will put her on a PPI since we will be starting her on steroids. 5. Deep venous thrombosis prophylaxis. We will put patient on heparin.
[2018-03-07 02:38] VITALS: BMI 21.8
[2018-03-07 05:27] LABS: Anion Gap 12 mmol/L (10-20); BUN (Urea Nitrogen) 23 mg/dL (9.8-20.1); Calc. Creatinine Clearance 43 mL/min (70-130); Calcium 8.9 mg/dL (7.8-10.44); Carbon Dioxide 28 mmol/L (23-31); Chloride 104 mmol/L (98-107); Estimated GFR-MDRD 56; Glucose 174 mg/dL (83-110); Potassium 3.7 mmol/L (3.5-5.1); Sodium 140 mmol/L (136-145)
[2018-03-07 05:54] LABS: #Basophils 0.1 thou/uL (0.0-0.2); #Lymphocytes 0.3 thou/uL (1.20-3.40); #Monocytes 0.4 thou/uL (0.11-0.59); #Neutrophils 9.3 thou/uL (1.40-6.50); %Basophils 0.7 % (0.0-1.0); %Eosinophils 0.1 % (0.0-10.0); %Lymphocytes 2.9 % (21.0-51.0); %Monocytes 4.1 % (0.0-10.0); %Neutrophils 92.2 % (42.0-75.0); Hemoglobin 9.9 g/dL (12.0-16.0); Mean Corpuscular Hemoglobin 29.9 pg (27.0-31.0); Mean Corpuscular Volume 93.6 fL (78.0-98.0); Mean Platelet Volume 8.2 fL (7.4-10.4); Platelet Count 184 thou/uL (130-400); RBC Distribution Width 15.4 % (11.5-14.5); Red Blood Cell (RBC) Count 3.32 mill/uL (4.20-5.40); White Blood Cell (WBC) Count 10.1 thou/uL (4.8-10.8)
[2018-03-07] MEDS: Mometasone/Formoterol 120 PUFF INHALER INH SCH ×2 (06:31→18:52)
[2018-03-07] MEDS: cefTRIAXone\\ROCEPHIN 1 GM in Sodium Chloride 0.9% 100 ML IVPB SCH (08:43)
[2018-03-07] MEDS ORDERED: Non-Formulary Item 1 EACH (Fluticasone/Vilanterol [Breo Ellipta] 1 INH) IH SCH (09:00)
[2018-03-07] MEDS ORDERED: Enoxaparin Sodium 40 MG/0.4 ML SYRINGE SC SCH (09:00)
[2018-03-07] MEDS ORDERED: hydrALAZINE 20 MG/ML VIAL SLOW IVP PRN (12:19)
--- NOTE | 2018-03-07 15:47 | CON ---
DATE OF CONSULTATION: 03/07/2018 CONSULTING PHYSICIAN: Hospitalist . REASON FOR CONSULTATION: Chronic obstructive pulmonary disease/pneumonia. This consult encompasses 70 minutes of time. Of that time, greater than 50% was spent with the patie nt and/or in the patient's unit in the hospital. HISTORY OF PRESENT ILLNESS: This patient presents to the hospital with 3-4 days of increasing shortn ess of breath, clear sputum production and high grade fever up to 103. She says that she "tried to t ough it out at home." She did not see a doctor until presentation in the ER late last night. Althou gh, her x-ray is clear, she has been diagnosed with pneumonia and is currently on IV antibiotics. [place] raymond states that she has been around her great grandchildren who had some type of viral syndrome. PAST MEDICAL HISTORY: 1. Severe COPD requiring home oxygen. She is a patient of Dr. Linda. 2. Coronary artery disease. 3. Aortic stenosis. 4. AV malformations. PAST SURGICAL HISTORY: Cholecystectomy. SOCIAL HISTORY: She is a past smoker who quit many years ago. MEDICATIONS PRIOR TO ADMISSION: Prednisone 5 mg daily, Crestor 20 mg daily, Nitrostat as needed, mul tivitamin 1 daily, isosorbide mononitrate 30 mg daily, DuoNeb every 6 hours as needed, Breo Ellipta 2 00/25 one puff daily, Flonase nasal spray 2 squirts each nostril daily, iron sulfate 142 mg daily, fl uoxetine 20 mg daily, calcium carbonate 1 tablet daily, aspirin 81 mg daily, and Tudorza Pressair 1 p uff twice daily. ALLERGIES: CEPHALEXIN, LEVOFLOXACIN, PRAVASTATIN. REVIEW OF SYSTEMS: Twelve point review of systems otherwise negative. PHYSICAL EXAMINATION: VITAL SIGNS: Temperature 98.1, pulse 87, respirations 18, O2 sat 100% on 3 liters, blood pressure 11 6/54. GENERAL: She is lying in bed in no respiratory distress. HEENT: Pupils are reactive. Sclerae anicteric. Oropharynx clear. NECK: Without adenopathy or JVD. LUNGS: There are no crackles, wheezing or rhonchi. CARDIAC: S1, S2 regular, without murmur, rub or gallop. ABDOMEN: Soft, nontender, nondistended. EXTREMITIES: No clubbing, cyanosis, or edema. LABORATORY DATA: White blood cell count 10.1, hematocrit 31.1, platelet count 184. Sodium 140, pota ssium 3.7, chloride 104, CO2 28, BUN 23, creatinine 0.9, glucose 174. X-RAY FINDINGS: Chest x-ray showed chronic interstitial changes, no acute infiltrate. ASSESSMENT: 1. Pneumonitis versus bronchitis 2. Severe chronic obstructive pulmonary disease. PLAN: I reviewed the orders, I agree with the plan for antibiotics, steroids, nebulization treatment s. We will be happy to follow along with you.
[2018-03-07] MEDS: Famotidine 20 MG TAB PO SCH (21:05)
[2018-03-07] MEDS: guaiFENesin ER 600 MG TAB PO SCH (21:05)
[2018-03-07] MEDS: Rosuvastatin 20 MG TAB PO SCH (21:05)
[2018-03-07] MEDS: Azithromycin 500 MG in Sodium Chloride 0.9% 250 ML 250 ML IVPB SCH (22:23)
[2018-03-08] MEDS: Mometasone/Formoterol 120 PUFF INHALER INH SCH ×2 (07:36→19:00)
[2018-03-08] MEDS ORDERED: ACLIDINIUM BROMIDE INH SCH (09:00)
[2018-03-08] MEDS ORDERED: Enoxaparin Sodium 30 MG/0.3 ML SYRINGE SC SCH ×2 (09:00→21:00)
[2018-03-08] MEDS ORDERED: FERROUS SULFATE 142 MG PO SCH (09:00)
[2018-03-08] MEDS ORDERED: Famotidine 20 MG TAB PO SCH (09:00)
[2018-03-08] MEDS ORDERED: MULTIVITAMIN WITH MINERALS PO SCH (09:00)
[2018-03-08] MEDS ORDERED: TUDORZA PRESSAIR INH SCH (09:00)
[2018-03-08] MEDS ORDERED: CALCIUM CARBONATE PO SCH (09:00)
[2018-03-08] MEDS ORDERED: VITAMIN D3 PO SCH (09:00)
[2018-03-08] MEDS ORDERED: [UNRECOGNIZED DRUG - OTHER] PO SCH (09:00)
[2018-03-08] MEDS: cefTRIAXone\\ROCEPHIN 1 GM in Sodium Chloride 0.9% 100 ML IVPB SCH (09:09)
[2018-03-08] MEDS: Multivitamin W/ Minerals 1 TAB PO SCH (09:10)
[2018-03-08] MEDS: Fluticasone Propionate Nasal Spray 16 gm Bottle NASAL SCH (09:10)
[2018-03-08] MEDS: Famotidine 20 MG TAB PO SCH (09:10)
[2018-03-08] MEDS: FLUoxetine HCl 20 MG CAP PO SCH (09:10)
[2018-03-08] MEDS: Aspirin 81 mg Enteric Coated Tablet PO SCH (09:11)
[2018-03-08] MEDS: Ferrous Sulfate 325 MG TAB PO SCH (09:11)
[2018-03-08] MEDS: Saccharomyces boulardii 250 MG CAP PO SCH (09:11)
[2018-03-08] MEDS: Calcium Carbonate + Vit D 1 TAB PO SCH (09:12)
[2018-03-08] MEDS: guaiFENesin ER 600 MG TAB PO SCH ×2 (09:12→22:11)
--- NOTE | 2018-03-08 10:40 | PRG ---
DATE OF SERVICE: 03/08/2018 SUBJECTIVE: The patient is doing reasonably well. She says she feels much better compared to yester day. PHYSICAL EXAMINATION: VITAL SIGNS: Temperature 97.6, pulse 89, respirations 18, O2 sat 99% on 3 liters, blood pressure 118 /53. HEENT: Unremarkable. NECK: No JVD. CHEST: A few crackles in the bases. CARDIAC: S1 and S2 regular. ABDOMEN: Soft. EXTREMITIES: No edema. ASSESSMENT: 1. Pneumonia versus bronchitis 2. Severe underlying chronic obstructive pulmonary disease. PLAN: Continue with the antibiotics, nebulization treatments and steroids. Likely by tomorrow, she can switch to oral therapy and I would think she can go home by tomorrow or Friday at the latest. I will inform Dr. Linda of the patient's hospitalization.
[2018-03-08] MEDS ORDERED: Loratadine 10 MG TAB PO PRN (16:43)
--- NOTE | 2018-03-08 16:47 | PDOC.PN ---
- Subjective Encounter Start Date: 03/08/18 Encounter Start Time: 16:50 Patient seen and examined for Resp failure. Some dry cough. Some dark stool Per RN. Patient reports dark stool on daily basis even at home. No new complaints. No overnight events - Objective Resuscitation Status: Resuscitation Status FULL:Full Resuscitation MAR Reviewed: Yes Vital Signs & Weight: Vital Signs (12 hours) Temp Pulse Pulse Pulse Resp BP BP 03/08/18 16:15 98.8 F 102 H 16 03/08/18 15:17 92 12 03/08/18 13:12 99 110 H 132/60 110/60 03/08/18 11:30 98.1 F 96 18 03/08/18 11:11 03/08/18 11:09 90 12 03/08/18 08:00 97.6 F 89 18 03/08/18 07:36 84 16 03/08/18 07:24 03/08/18 07:21 82 16 BP Pulse Ox 03/08/18 16:15 112/54 L 95 03/08/18 15:17 03/08/18 13:12 03/08/18 11:30 111/70 100 03/08/18 11:11 91 L 03/08/18 11:09 03/08/18 08:00 118/53 L 99 03/08/18 07:36 03/08/18 07:24 99 03/08/18 07:21 Weight Admit Weight 127 lb 1.6 oz Weight 127 lb 1.6 oz I&O: 03/07/18 03/08/18 03/09/18 06:59 06:59 06:59 Intake Total 720 Output Total 50 Balance 670 Result Diagrams: 03/07/18 05:04 03/07/18 05:04 Radiology Reviewed by me: Yes (CXR ? Pneumonia) EKG Reviewed by me: Yes (Tele SR) Phys Exam - Physical Examination Constitutional: NAD Respiratory: no wheezing, no rhonchi Bibasilar rales at bases B/L, No accessory muscle use Cardiovascular: RRR, no rub No heaves/pulsations Gastrointestinal: soft, non-tender, no distention, positive bowel sounds Musculoskeletal: no edema, pulses present Neurological: non-focal, normal sensation, moves all 4 limbs Psychiatric: normal affect, A&O x 3 Dx/Plan - Plan plan discussed w/ family, respiratory therapy, out of bed/ambulate, DVT proph w/ SCDs IMPRESSION: 1. Acute hypoxic resp failure 2. Sepsis due to ?Pneumonia - suspected Pneumococcal. 3. Severe COPD Exacerbation 4. Hypokalemia - replaced 5. CAD - on ASA 6. h/o GI bleeding 12/10 7. Chronic resp failure on home O2 PLAN: Cont IV Ceftriaxone with Azithromycin Cont IV Solumedrol Add Protonix DC Lovenox due to dark stool and h/o GI bleed AM labs Cont other meds as below Add Mucinex Ambulate Review of Systems - Review of Systems Constitutional: negative: fever, chills, sweats, weakness, malaise, other Cardiovascular: negative: chest pain, palpitations, orthopnea, paroxysmal nocturnal dyspnea, edema, light headedness, other - Medications/Allergies Allergies/Adverse Reactions: Allergies Allergy/AdvReac Type Severity Reaction Status Date / Time cephalexin Allergy Verified 03/07/18 02:55 levofloxacin [From Levaquin] Allergy Verified 03/07/18 02:55 pravastatin [From Pravachol] Allergy Verified 03/07/18 02:55 Medications: Current Medications Acetaminophen (Tylenol) 650 mg PO Q4H PRN PRN Reason: Headache/Fever or Pain Albuterol/Ipratropium (Duoneb) 3 ml NEB QID-RT [facility] Last Admin: 03/08/18 15:17 Dose: 3 ml Aspirin (Ecotrin) 81 mg PO DAILY [facility] Last Admin: 03/08/18 09:11 Dose: 81 mg Calcium/Vitamin D (Caltrate 600 + Vit D) 2 tab PO DAILY [facility] Last Admin: 03/08/18 09:12 Dose: 2 tab Ferrous Sulfate (Feosol) 325 mg PO DAILY [facility] Last Admin: 03/08/18 09:11 Dose: 325 mg Fluoxetine HCl (Prozac) 20 mg PO DAILY [facility] Last Admin: 03/08/18 09:10 Dose: 20 mg Fluticasone Propionate (Flonase Nasal [place]) 0 gm NASAL DAILY [facility] Last Admin: 03/08/18 09:10 Dose: 1 spr Guaifenesin (Mucinex) 600 mg PO Q12HR [facility] Last Admin: 03/08/18 09:12 Dose: 600 mg Hydralazine HCl (Apresoline) 10 mg SLOW IVP Q4H PRN PRN Reason: SBP Greater Than 180 Azithromycin 500 mg/ Sodium (Chloride) 250 mls @ 250 mls/hr IVPB Q24HR@2300 [facility] Last Admin: 03/07/18 22:23 Dose: 250 mls Ceftriaxone Sodium 1 gm/ (Sodium Chloride) 100 mls @ 200 mls/hr IVPB Q24HR@ 0800 [facility] Last Admin: 03/08/18 09:09 Dose: 100 mls Iron/Minerals/Multivitamins (Theragran M) 1 tab PO DAILY [facility] Last Admin: 03/08/18 09:10 Dose: 1 tab Isosorbide Mononitrate (Imdur Er) 30 mg PO DAILY [facility] Last Admin: 03/08/18 09:10 Dose: Not Given Loratadine (Claritin) 10 mg PO DAILYPRN PRN PRN Reason: Sinus Symptoms Methylprednisolone Sodium Succinate (Solu-Medrol) 40 mg IVP BID [facility] Last Admin: 03/08/18 09:09 Dose: 40 mg Mometasone Furoate/Formoterol Fumar (Dulera 200 Mcg/5 Mcg Inhaler) 2 puff INH BID-RT [facility] Last Admin: 03/08/18 07:36 Dose: 2 puff Pantoprazole Sodium (Protonix) 40 mg PO DAILY [facility] Pantoprazole Sodium (Protonix) 40 mg PO NOW [facility] Stop: 03/08/18 17:30 Tudorza Pressair ( (Aclidinium Clever)) 0 each INH DAILY [facility] Rosuvastatin Calcium (Crestor) 20 mg PO HS [facility] Last Admin: 03/07/18 21:05 Dose: 20 mg Saccharomyces Boulardii (Florastor) 250 mg PO DAILY [facility] Last Admin: 03/08/18 09:11 Dose: 250 mg Sodium Chloride (Flush - Normal Saline) 10 ml IVF Q12HR [facility] Last Admin: 03/08/18 09:12 Dose: 10 ml Sodium Chloride (Flush - Normal Saline) 10 ml IVF PRN PRN PRN Reason: Saline Flush
[2018-03-08] MEDS ORDERED: guaiFENesin ER 600 MG TAB PO SCH (21:00)
[2018-03-08] MEDS: Azithromycin 500 MG in Sodium Chloride 0.9% 250 ML 250 ML IVPB SCH (22:11)
[2018-03-08] MEDS: Rosuvastatin 20 MG TAB PO SCH (22:11)
[2018-03-09 05:46] LABS: #Lymphocytes 0.5 thou/uL (1.20-3.40); #Monocytes 0.3 thou/uL (0.11-0.59); #Neutrophils 12.7 thou/uL (1.40-6.50); %Lymphocytes 3.7 % (21.0-51.0); %Monocytes 1.9 % (0.0-10.0); %Neutrophils 94.3 % (42.0-75.0); Mean Corpuscular HGB CONC 32.3 g/dL (32.0-36.0); Mean Corpuscular Hemoglobin 30.3 pg (27.0-31.0); Mean Corpuscular Volume 93.7 fL (78.0-98.0); Mean Platelet Volume 7.4 fL (7.4-10.4); Platelet Count 248 thou/uL (130-400); White Blood Cell (WBC) Count 13.4 thou/uL (4.8-10.8)
[2018-03-09 05:53] LABS: Anion Gap 13 mmol/L (10-20); BUN (Urea Nitrogen) 27 mg/dL (9.8-20.1); Calc. Creatinine Clearance 50 mL/min (70-130); Calcium 8.8 mg/dL (7.8-10.44); Carbon Dioxide 28 mmol/L (23-31); Chloride 103 mmol/L (98-107); Estimated GFR-MDRD 64; Glucose 161 mg/dL (83-110); Magnesium 2.4 mg/dL (1.6-2.6); Sodium 140 mmol/L (136-145)
[2018-03-09] MEDS: Mometasone/Formoterol 120 PUFF INHALER INH SCH ×2 (06:54→18:47)
[2018-03-09] MEDS ORDERED: Metoclopramide HCl 10 MG/2 ML VIAL IVP PRN (09:11)
[2018-03-09] MEDS: cefTRIAXone\\ROCEPHIN 1 GM in Sodium Chloride 0.9% 100 ML IVPB SCH (09:15)
--- NOTE | 2018-03-09 09:30 | PRG ---
DATE OF SERVICE: 03/09/2018 This morning the patient is awake, alert, responsive. She was nauseated, probably some of the medici ne she is getting. She is less short of breath. She said when she came in her sats were in the 70s. PHYSICAL EXAMINATION: VITAL SIGNS: Today her temperature is 98, sats 100% on 2 liters, respirations 16, pulse 85, blood pr essure 171/81. CHEST: Chest reveals decreased breath sounds, no wheezing. CARDIAC: Normal S1, S2. ABDOMEN: Soft, no masses. LABORATORY: Electrolytes are normal. White count 13,000. A chest x-ray did not show any obvious infiltrates. IMPRESSION: 1. End-stage chronic obstructive pulmonary disease exacerbation. 2. Bronchitis. 3. Nausea, probably medication related. Reglan is being initiated. Otherwise, continue DuoNeb treatment and supportive care. Her prognosis is guarded. She is a DNR.
--- NOTE | 2018-03-09 09:41 | PRG ---
DATE OF SERVICE: 03/09/2018 This morning she is nauseated. She is less short of breath. PHYSICAL EXAMINATION: VITAL SIGNS: Temperature 98, pulse 116, respiration 16, blood pressure 170/88. CHEST: Chest reveals decreased breath sounds, no wheezing. CARDIAC: Normal S1, S2. No gallops. ABDOMEN: Soft, no masses. LABORATORY: Electrolytes are normal. Chest x-ray was normal. She had a CAT scan done several months ago which showed a questionable lung lesion which is clearly not visible on today's x-ray. IMPRESSION: Nausea, probably medication. She is allergic to CEPHALOSPORINS. I am going to discontinue her present antibiotics, switch her to Augmentin, Reglan for nausea. Outpatient CAT scan. PT and supportive care.
[2018-03-09] MEDS: Fluticasone Propionate Nasal Spray 16 gm Bottle NASAL SCH (10:53)
[2018-03-09] MEDS: Aspirin 81 mg Enteric Coated Tablet PO SCH (10:54)
[2018-03-09] MEDS: Calcium Carbonate + Vit D 1 TAB PO SCH (10:54)
[2018-03-09] MEDS: Ferrous Sulfate 325 MG TAB PO SCH (10:55)
[2018-03-09] MEDS: FLUoxetine HCl 20 MG CAP PO SCH (10:55)
[2018-03-09] MEDS: Saccharomyces boulardii 250 MG CAP PO SCH (10:55)
[2018-03-09] MEDS: guaiFENesin ER 600 MG TAB PO SCH ×2 (10:55→20:21)
[2018-03-09] MEDS: Multivitamin W/ Minerals 1 TAB PO SCH (10:55)
[2018-03-09] MEDS: Amoxicillin/Potassium Clav 250 MG TAB PO SCH (20:21)
[2018-03-09] MEDS: Rosuvastatin 20 MG TAB PO SCH (20:21)
--- NOTE | 2018-03-09 22:17 | PDOC.PN ---
- Subjective Encounter Start Date: 03/09/18 Encounter Start Time: 17:00 Patient seen and examined for Resp failure. Had nausea last night. No vomiting. Feels gen weak. Dry cough +. No overnight events - Objective Resuscitation Status: Resuscitation Status DNR:Do Not Resuscitate MAR Reviewed: Yes Vital Signs & Weight: Vital Signs (12 hours) Temp Pulse Resp BP Pulse Ox 03/09/18 19:15 98 F 99 22 H 112/53 L 94 L 03/09/18 18:45 91 18 98 03/09/18 16:05 97.8 F 94 16 118/58 L 95 03/09/18 13:31 94 16 98 03/09/18 12:25 98.0 F 94 16 109/55 L 92 L 03/09/18 10:44 82 18 100 Weight Admit Weight 127 lb 1.6 oz Weight 130 lb 8 oz I&O: 03/08/18 03/09/18 03/10/18 06:59 06:59 06:59 Intake Total 720 1330 Output Total 50 1900 Balance 670 -570 Result Diagrams: 03/09/18 05:08 03/09/18 05:08 EKG Reviewed by me: Yes (Tele SR) Phys Exam - Physical Examination Constitutional: NAD Respiratory: no wheezing, no rhonchi Cardiovascular: RRR, no rub Gastrointestinal: soft, non-tender, positive bowel sounds Musculoskeletal: no edema Dx/Plan - Plan plan discussed w/ family, DVT proph w/SCDs IMPRESSION: 1. Acute hypoxic resp failure due to Pneumonia/COPD flare 2. Sepsis due to ?Pneumonia - suspected Pneumococcal - improving 3. Severe COPD Exacerbation - improving 4. Hypokalemia - replaced 5. CAD - on ASA 6. h/o GI bleeding 12/10 7. Chronic resp failure on home O2 8. Leucocytosis - prob due to steroids PLAN: Cont Augmentin Ceftriaxone dced - probably causing nausea (Pt is allergic to Keflex) Cont IV Solumedrol at 20 mg IV BID Cont Protonix AM labs Cont other meds as below DC in 1-2d if stable Review of Systems - Review of Systems Constitutional: negative: fever, chills, sweats, weakness, malaise, other Cardiovascular: negative: chest pain, palpitations, orthopnea, paroxysmal nocturnal dyspnea, edema, light headedness, other - Medications/Allergies Allergies/Adverse Reactions: Allergies Allergy/AdvReac Type Severity Reaction Status Date / Time cephalexin Allergy Verified 03/07/18 02:55 levofloxacin [From Levaquin] Allergy Verified 03/07/18 02:55 pravastatin [From Pravachol] Allergy Verified 03/07/18 02:55 Medications: Current Medications Acetaminophen (Tylenol) 650 mg PO Q4H PRN PRN Reason: Headache/Fever or Pain Albuterol/Ipratropium (Duoneb) 3 ml NEB QID-RT [facility] Last Admin: 03/09/18 18:45 Dose: 3 ml Amoxicillin/Clavulanate Potassium (Augmentin) 250 mg PO Q12HR [facility] Stop: 03/14/18 21:01 Last Admin: 03/09/18 20:21 Dose: 250 mg Aspirin (Ecotrin) 81 mg PO DAILY [facility] Last Admin: 03/09/18 10:54 Dose: 81 mg Calcium/Vitamin D (Caltrate 600 + Vit D) 2 tab PO DAILY [facility] Last Admin: 03/09/18 10:54 Dose: 2 tab Ferrous Sulfate (Feosol) 325 mg PO DAILY [facility] Last Admin: 03/09/18 10:55 Dose: 325 mg Fluoxetine HCl (Prozac) 20 mg PO DAILY [facility] Last Admin: 03/09/18 10:55 Dose: 20 mg Fluticasone Propionate (Flonase Nasal [place]) 0 gm NASAL DAILY [facility] Last Admin: 03/09/18 10:53 Dose: 2 spr Guaifenesin (Mucinex) 600 mg PO Q12HR [facility] Last Admin: 03/09/18 20:21 Dose: 600 mg Hydralazine HCl (Apresoline) 10 mg SLOW IVP Q4H PRN PRN Reason: SBP Greater Than 180 Iron/Minerals/Multivitamins (Theragran M) 1 tab PO DAILY [facility] Last Admin: 03/09/18 10:55 Dose: 1 tab Isosorbide Mononitrate (Imdur Er) 30 mg PO DAILY [facility] Last Admin: 03/09/18 10:54 Dose: 30 mg Loratadine (Claritin) 10 mg PO DAILYPRN PRN PRN Reason: Sinus Symptoms Methylprednisolone Sodium Succinate (Solu-Medrol) 20 mg IVP BID [facility] Last Admin: 03/09/18 20:20 Dose: 20 mg Metoclopramide HCl (Reglan) 10 mg IVP Q6H PRN PRN Reason: Nausea/Vomiting Last Admin: 03/09/18 10:52 Dose: 10 mg Mometasone Furoate/Formoterol Fumar (Dulera 200 Mcg/5 Mcg Inhaler) 2 puff INH BID-RT [facility] Last Admin: 03/09/18 18:47 Dose: 2 puff Pantoprazole Sodium (Protonix) 40 mg PO DAILY [facility] Last Admin: 03/09/18 10:55 Dose: 40 mg Rosuvastatin Calcium (Crestor) 20 mg PO HS [facility] Last Admin: 03/09/18 20:21 Dose: 20 mg Saccharomyces Boulardii (Florastor) 250 mg PO DAILY [facility] Last Admin: 03/09/18 10:55 Dose: 250 mg Sodium Chloride (Flush - Normal Saline) 10 ml IVF Q12HR [facility] Last Admin: 03/09/18 20:21 Dose: 10 ml Sodium Chloride (Flush - Normal Saline) 10 ml IVF PRN PRN PRN Reason: Saline Flush
[2018-03-10] MEDS: Mometasone/Formoterol 120 PUFF INHALER INH SCH (07:15)
--- NOTE | 2018-03-10 11:00 | PRG ---
DATE OF SERVICE: 03/10/2018 This morning she is better. She is still nauseated, though somewhat better. She is walking. PHYSICAL EXAMINATION: VITAL SIGNS: Sats are 92 on 2 liters, temperature 97, blood pressure 136/64. CHEST: Chest reveals decreased breath sounds, no wheezing. CARDIAC: Normal S1, S2, no gallops. ABDOMEN: Soft, no mass. IMPRESSION: 1. End-stage chronic obstructive pulmonary disease. 2. Nausea, etiology unclear. Her abdomen is soft. PLAN: She wants to go home. I would suggest discharging home on tapering doses of steroids. Antibi otics for several days. She is to follow up with Dr. Linda in the office next month where a CT of the chest is going to be ordered to assess peripheral lung nodule.
[2018-03-10] MEDS: Fluticasone Propionate Nasal Spray 16 gm Bottle NASAL SCH (11:45)
[2018-03-10] MEDS: Saccharomyces boulardii 250 MG CAP PO SCH (11:46)
[2018-03-10] MEDS: Aspirin 81 mg Enteric Coated Tablet PO SCH (11:47)
[2018-03-10] MEDS: guaiFENesin ER 600 MG TAB PO SCH (11:47)
[2018-03-10] MEDS: Calcium Carbonate + Vit D 1 TAB PO SCH (11:47)
[2018-03-10] MEDS: Multivitamin W/ Minerals 1 TAB PO SCH (11:48)
[2018-03-10] MEDS: Ferrous Sulfate 325 MG TAB PO SCH (11:48)
[2018-03-10] MEDS: Amoxicillin/Potassium Clav 250 MG TAB PO SCH (11:49)
[2018-03-10] MEDS: FLUoxetine HCl 20 MG CAP PO SCH (11:49)
[2018-03-10 16:41] VITALS: BP 135/61; TEMP 98.9
--- NOTE | 2018-03-10 19:47 | DIS ---
DATE OF DISCHARGE: 03/10/2018 DISCHARGE DISPOSITION: Home. FOLLOWUP: Follow up with primary care physician, Dr. Kassy Long in 1 week. Follow up with Pulmon perry, Dr. Linda, as scheduled. ALLERGIES: The patient is allergic to KEFLEX, LEVAQUIN, and PRAVASTATIN. DISCHARGE MEDICATIONS: 1. Augmentin 250 mg twice a day for 1 week. 2. Prednisone 20 mg daily for the next 5 days. The patient was advised to resume her home prednison e after this. Dr. Linda also advised her to increase her daily prednisone to 10 mg daily until seen b brittany Linda. 3. All other home medications were resumed. INPATIENT CONSULTANTS: Pulmonary, Dr. Linda. BRIEF HOSPITAL COURSE: The patient is a 77-year-old female with COPD; chronic respiratory failure, o n home oxygen, presented to the hospital with shortness of breath and hypoxia. Please refer to the h istory and physical for further details. The patient was admitted to the hospital with a diagnosis of acute hypoxic respiratory failure second perry to chronic obstructive pulmonary disease exacerbation/pneumonia. She was started on IV steroids along with ceftriaxone. She developed some nausea which was probably secondary to ceftriaxone. For this reason, it was changed to Augmentin. She has done as well. Shortness of breath and wheezing parada s improved. She will follow up with Dr. Linda as outpatient. She has been cleared by Pulmonary for d ischarge. FINAL DIAGNOSES: 1. Acute hypoxic respiratory failure secondary to pneumonia/chronic obstructive pulmonary disease ex acerbation. 2. Sepsis secondary to pneumonia, suspected pneumococcal. 3. Severe chronic obstructive pulmonary disease exacerbation. 4. Hypokalemia with potassium 3.3, corrected. Her potassium on the day of discharge is 4.0. Her ma gnesium was normal. 5. Coronary artery disease. 6. History of GI bleeding in November of this year. 7. Chronic respiratory failure, on home oxygen. 8. Leukocytosis of 13.4 probably secondary to steroids. Plan of care was discussed with the patient in detail. She stated understanding.
[2018-03-11] MEDS ORDERED: predniSONE 5 MG TAB PO SCH (08:00)
== END 2018-03-10 16:30 | disposition home or self-care (01) | DRG 871 ==
LOC: ERS 22:09 → 2NO 23:56
PROVIDERS: ADMIT Internal Medicine; ATTEND Internal Medicine
DX: A40.3 Sepsis due to Streptococcus pneumoniae (principal); J13 Pneumonia due to Streptococcus pneumoniae; J96.21 Acute and chronic respiratory failure with hypoxia; I35.0 Nonrheumatic aortic (valve) stenosis; I25.10 Atherosclerotic heart disease of native coronary artery without angina pectoris; E87.6 Hypokalemia; R11.0 Nausea; Z99.81 Dependence on supplemental oxygen; D72.829 Elevated white blood cell count, unspecified; T38.0X5A Adverse effect of glucocorticoids and synthetic analogues, initial encounter; Z87.891 Personal history of nicotine dependence; Z95.5 Presence of coronary angioplasty implant and graft; Z95.4 Presence of other heart-valve replacement; Z90.710 Acquired absence of both cervix and uterus; Z90.49 Acquired absence of other specified parts of digestive tract; Z88.1 Allergy status to other antibiotic agents
CPT/HCPCS: 36415; 71045; 80048; 80053; 82553; 83605; 83735; 84484; 85025; 87633; 93005; 94640; 94664; 96365; 96375; A4216; G8978-GP-CL; G8979-GP-CK; J0456; J0696; J1650; J2765; J2920; J2930; J7050; J7620

== ENCOUNTER 2018-03-11 17:21 | Observation (INO) | payer MEDICARE ==
[2018-03-11 17:42] LABS: #Lymphocytes 0.3 thou/uL (1.20-3.40); #Monocytes 0.3 thou/uL (0.11-0.59); #Neutrophils 6.6 thou/uL (1.40-6.50); %Eosinophils 0.4 % (0.0-10.0); %Lymphocytes 4.1 % (21.0-51.0); %Monocytes 4.3 % (0.0-10.0); %Neutrophils 91.1 % (42.0-75.0); Mean Corpuscular HGB CONC 31.6 g/dL (32.0-36.0); Mean Corpuscular Hemoglobin 29.2 pg (27.0-31.0); Mean Corpuscular Volume 92.4 fL (78.0-98.0); Mean Platelet Volume 7.5 fL (7.4-10.4); Platelet Count 258 thou/uL (130-400); RBC Distribution Width 15.8 % (11.5-14.5); Red Blood Cell (RBC) Count 3.42 mill/uL (4.20-5.40); White Blood Cell (WBC) Count 7.3 thou/uL (4.8-10.8)
[2018-03-11 18:07] LABS: ALT (SGPT) 22 U/L (8-55); AST (SGOT) 17 U/L (5-34); Albumin 3.6 g/dL (3.4-4.8); Alkaline Phosphatase 64 U/L (40-150); Anion Gap 11 mmol/L (10-20); BUN (Urea Nitrogen) 12 mg/dL (9.8-20.1); Bilirubin, Total 0.5 mg/dL (0.2-1.2); Calc. Creatinine Clearance 0 mL/min (70-130); Carbon Dioxide 32 mmol/L (23-31); Chloride 98 mmol/L (98-107); Estimated GFR-MDRD 59; Globulin 2.6 g/dL (2.4-3.5); Glucose 279 mg/dL (83-110); Potassium 3.7 mmol/L (3.5-5.1); Protein, Total 6.2 g/dL (6.0-8.3); Sodium 137 mmol/L (136-145)
[2018-03-11 18:49] LABS: CKMB 1.3 ng/mL (0-6.6); Troponin I Less than 0.010 ng/mL (< 0.028)
--- NOTE | 2018-03-11 18:54 | RAD ---
SINGLE VIEW OF THE CHEST: 03/11/18 COMPARISON: 03/06/18 HISTORY: Pneumonia and shortness of breath. FINDINGS: Single view of the chest shows normal sized cardiomediastinal silhouette. The patient is status post aortic valve repair. There is no evidence of consolidation, mass or pleural effusion. IMPRESSION: No evidence of acute cardiopulmonary disease. POS: C
--- NOTE | 2018-03-11 21:20 | CT ---
CTA OF THE CHEST WITH CONTRAST: 03/11/18 COMPARISON: CTA aortic dissection protocol of 11/27/17. HISTORY: Elevated D-dimer and shortness of breath. Dyspnea. TECHNIQUE: Multiple contiguous axial images were obtained in a CTA of the chest with contrast per pulmonary embo lism protocol. 3D oblique MIP reformats and direct coronal reformats were performed. FINDINGS: The pulmonary arteries are well opacified without filling defect to suggest pulmonary emboli. Left ve ntricular hypertrophy is seen. There is a stent in the region of the aortic valve. No hilar or media stinal lymphadenopathy are seen. Emphysematous changes are seen in the lungs. There is a stable 1.4 cm area of spiculation in the post erior aspect of the right upper lobe which extends to the posterior pleura. This may represent scarri ng but a pulmonary mass cannot be entirely excluded. No pleural effusion or pneumothorax are seen. A calcified granuloma is seen in the left lung base. The visualized subdiaphragmatic structures are unremarkable. Degenerative changes are seen in the spi ne. The chest wall soft tissues are unremarkable. IMPRESSION: 1. No evidence of pulmonary thromboembolism. 2. There is a stable spiculated region of the right upper lobe. This may represent scarring. A m ass cannot be entirely excluded. A PET CT is recommended to evaluate for hypermetabolic activity with in this region. POS: C
[2018-03-11] MEDS ORDERED: methylPREDNISolone Sod Succ/PF 125 MG/2 ML VIAL ONE (22:59)
[2018-03-11 23:21] LABS: Troponin I Less than 0.010 ng/mL (< 0.028)
[2018-03-11 23:59] VITALS: BMI 22.7
[2018-03-12] MEDS ORDERED: Ondansetron HCl/PF 4 MG/2 ML Vial IVP PRN
[2018-03-12] MEDS ORDERED: Ondansetron ODT 4 MG TAB SL PRN
[2018-03-12] MEDS ORDERED: Azithromycin 500 MG in Sodium Chloride 0.9% 250 ML 250 ML IVPB SCH (00:30)
[2018-03-12 02:03] LABS: Troponin I Less than 0.010 ng/mL (< 0.028)
[2018-03-12] MEDS ORDERED: hydrALAZINE 20 MG/ML VIAL SLOW IVP PRN (10:35)
[2018-03-12] MEDS ORDERED: Ondansetron ODT 4 MG TAB PO PRN (10:35)
[2018-03-12] MEDS ORDERED: Benzonatate 100 MG CAP PO PRN (10:35)
[2018-03-12] MEDS ORDERED: Acetaminophen 500 MG TAB PO PRN (10:35)
[2018-03-12] MEDS ORDERED: cloNIDine 0.1 MG TAB PO PRN (10:35)
[2018-03-12] MEDS ORDERED: Non-Formulary Item 1 EACH (Fluticasone/Vilanterol [Breo Ellipta] 1 INH) IH SCH (11:00)
[2018-03-12] MEDS ORDERED: Spiriva 18 MCG CAP (Box of 5 Caps) INH SCH (11:00)
--- NOTE | 2018-03-12 11:11 | HP ---
PRIMARY CARE PHYSICIAN: Dr. Kassy Long CHIEF COMPLAINT: Shortness of breath. HISTORY OF PRESENT ILLNESS: This is a 77-year-old female who presents to [facility] Emergency Department complaining of persistent shortness of breath and fever. The patient was rec ently admitted from 03/07/2018 through 03/10/2018 for COPD exacerbation and suspected sepsis due to p otential pneumonia. The patient was placed on a prednisone taper as well as Augmentin 250 mg b.i.d. The patient was discharged on 03/10/2018 and states she was home less than 24 hours when she noticed fever, increased fatigue and shortness of breath. The patient presented to her primary care provide r's office for evaluation at which point he directed her to seek medical attention in the emergency r oom. The patient states she is on chronic oxygen supplementation at 2 liters per minute by nasal can nula and turned her oxygen flow to 3 liters in the last 24 hours. The patient states she has difficu lty lying flat in her bed due to her lung disease, but states overnight in the hospital, she was able to sleep better, sitting up in bed. The patient denied any swelling of the lower extremities, recur rent fever overnight and breathing easier with bronchodilator therapy. The patient states she has be en compliant with her chronic medication regimen including the use of a home nebulizer as well as Nolvia o Ellipta inhaler. The patient was also discharged home on prednisone; however, only took one dose a s she returned to the hospital for evaluation. In the emergency room, the patient underwent general evaluation including chest imaging showing no acute infiltrate. CT angiogram of the chest was perfor med showing no evidence for pulmonary embolus and a stable spiculated region of the right upper lobe noted on prior scans. Emphysematous changes were noted throughout bilateral lung ovalle. The patien t received IV Solu-Medrol, DuoNebs and was placed in observation status. PAST MEDICAL HISTORY: 1. Chronic hypoxemic respiratory failure on oxygen supplementation at 2 liters per minute by nasal c annula. 2. Chronic obstructive pulmonary disease. 3. Coronary artery disease. 4. Gastritis. 5. Aortic stenosis. 6. 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 PAST SURGICAL HISTORY: Status post cholecystectomy. CURRENT MEDICATIONS: 1. Tudorza Pressair 1 puff inhaled daily. 2. Augmentin 250 mg p.o. b.i.d. 3. Enteric-coated aspirin 81 mg p.o. daily. 4. Calcium carbonate with vitamin D3 one tablet p.o. daily. 5. Ferrous sulfate 142 mg p.o. daily. 6. Fluoxetine 20 mg 1 tab p.o. daily. 7. Flonase nasal spray 2 sprays in each naris daily. 8. Breo Ellipta 1 inhalation daily. 9. Guaifenesin ER 600 mg p.o. q.12 hours. 10. DuoNeb 3 mL nebulized q.i.d. 11. Isosorbide mononitrate 30 mg p.o. daily. 12. Multivitamin 1 tab p.o. daily. 13. Nitrostat 0.4 mg sublingually every 5 minutes p.r.n. chest pain. 14. Protonix 40 mg 1 tab p.o. daily. 15. Prednisone 20 mg daily. 16. Crestor 20 mg p.o. at bedtime. ALLERGIES: KEFLEX, LEVOFLOXACIN, PRAVACHOL. FAMILY HISTORY: Positive for coronary artery disease. SOCIAL HISTORY: The patient resides in [place], [place]. Retired. . No current alcohol, to bacco or illicit drug use. REVIEW OF SYSTEMS: The following complete review of systems was negative, unless otherwise mentioned in the HPI or below: Constitutional: Weight loss or gain, ability to conduct usual activities. Skin: Rash, itching. Eyes: Double vision, pain. ENT/Mouth: Nose bleeding, neck stiffness, pain, tenderness. Cardiovascular: Palpitations, dyspnea on exertion, orthopnea. Respiratory: Shortness of breath, wheezing, cough, hemoptysis, fever or night sweats. Gastrointestinal: Poor appetite, abdominal pain, heartburn, nausea, vomiting, constipation, or diarrhea. Genitourinary: Urgency, frequency, dysuria, nocturia. Musculoskeletal: Pain, swelling. Neurologic/Psychiatric: Anxiety, depression. Allergy/Immunologic: Skin rash, bleeding tendency. PHYSICAL EXAMINATION: VITAL SIGNS CURRENTLY: Blood pressure 155/70, pulse 94, respiratory rate 22, temperature 98.2 degree s Fahrenheit, O2 saturation 92% on 2 liters per minute by nasal cannula. GENERAL APPEARANCE: This is a 77-year-old female, alert and oriented x3, pleasant, convers ant, in no acute distress. HEENT: Pupils are equal, round, and reactive to light and accommodation. Extraocular muscles are in tact. No scleral icterus, no conjunctival injection. Nares patent. OP is clear. Teeth in good rep air. NECK: Supple, no cervical adenopathy, no thyromegaly, no carotid bruits, no JVD appreciated. Cervic al spine with full active and passive range of motion. No meningeal signs appreciated. CHEST: Expiratory wheezes bilaterally. Diminished airflow in bilateral lung ovalle. Few scattered coarse breath sounds. CARDIOVASCULAR: S1, S2 with a 1-2/6 systolic ejection murmur in the right upper sternal border. No rubs or gallops. ABDOMEN: Rounded, soft, nontender, nondistended. Bowel sounds are positive in all 4 quadrants. No hepatosplenomegaly, no abdominal bruits, no rebound or guarding appreciated. EXTREMITIES: Warm and dry with fair turgor. No clubbing, cyanosis or asymmetric edema appreciated. Pulses palpable distally at the dorsalis pedis, posterior tibial, and popliteal arteries bilaterally . Capillary refill less than 2 seconds. NEUROLOGIC: Cranial nerves II-XII are grossly intact. No focal or lateralizing signs appreciated. PERTINENT LABORATORY AND X-RAY FINDINGS: Basic metabolic profile within normal limits. Total CK 25, troponin I negative x3. CBC showed a white blood cell count of 7.3, hemoglobin 10, hematocrit 32, p latelet count 258 with 91% neutrophils. D-dimer 2.02. Portable chest x-ray dated 03/11/2018 showed no acute process. CT angiogram of the chest dated 03/11 showed no evidence for pulmonary embolus. Emphysematous changes bilaterally. Stable 1.4 cm ar ea of spiculation in the posterior aspect of the right upper lobe seen previously on prior imaging. EKG dated 03/11/2018 by my interpretation shows a sinus tachycardia with heart rates in the low 100s. Attenuated R waves in the precordial leads. Left bundle branch block pattern noted. ASSESSMENT AND PLAN: 1. Acute on chronic hypoxemic respiratory failure. Suspect secondary to #2. We will place in obser vation status. We will continue oxygen supplementation to maintain O2 saturations greater than or eq ual to 90%. See #2 below for management. 2. Acute chronic obstructive pulmonary disease exacerbation. We will continue general supportive me asures. Solu-Medrol 40 mg IV q.6., Zithromax 500 mg p.o. daily. DuoNeb q.4 hours. Continue Spiriva HandiHaler 18 mcg inhaled daily. Continue Tudorza Pressair 1 puff inhaled daily. Continue Breo Ell ipta. 3. Chronic normocytic anemia. Stable currently. No evidence to suggest acute blood loss. Repeat C BC in the a.m. 4. Coronary artery disease. Chronic and stable. No evidence to suggest acute coronary syndrome. C ontinue home medication regimen and monitor clinically. 5. Prophylaxis. Sequential compression devices while in bed. Protonix 40 mg p.o. daily. 6. Code status is full. Surrogate medical decision maker is the patient's daughter.
[2018-03-12] MEDS: Ondansetron HCl/PF 4 MG/2 ML Vial IVP PRN (16:18)
[2018-03-12] MEDS ORDERED: Promethazine HCl 25 MG/ML VIAL SLOW IVP PRN (18:37)
[2018-03-12] MEDS ORDERED: Promethazine HCl 25 MG/ML VIAL SLOW IVP SCH (18:45)
[2018-03-12] MEDS: Rosuvastatin 20 MG TAB PO SCH (21:07)
[2018-03-12] MEDS: guaiFENesin ER 600 MG TAB PO SCH (21:07)
[2018-03-13 06:32] LABS: Anion Gap 10 mmol/L (10-20); BUN (Urea Nitrogen) 18 mg/dL (9.8-20.1); Calc. Creatinine Clearance 58 mL/min (70-130); Calcium 9.2 mg/dL (7.8-10.44); Carbon Dioxide 36 mmol/L (23-31); Chloride 102 mmol/L (98-107); Estimated GFR-MDRD 75; Glucose 153 mg/dL (83-110); Potassium 4.6 mmol/L (3.5-5.1); Sodium 143 mmol/L (136-145)
[2018-03-13 06:35] LABS: Band 17 % (5-11); Hemoglobin 8.8 g/dL (12.0-16.0); Lymphocytes 5 % (21-51); MDiff Complete? YES; Mean Corpuscular HGB CONC 30.2 g/dL (32.0-36.0); Mean Corpuscular Hemoglobin 28.2 pg (27.0-31.0); Mean Corpuscular Volume 93.4 fL (78.0-98.0); Mean Platelet Volume 7.2 fL (7.4-10.4); Monocytes 3 % (0-10); Neutrophil 75 % (42-75); Platelet Count 279 thou/uL (130-400); RBC Distribution Width 15.3 % (11.5-14.5); Red Blood Cell (RBC) Count 3.13 mill/uL (4.20-5.40); White Blood Cell (WBC) Count 8.6 thou/uL (4.8-10.8)
[2018-03-13] MEDS ORDERED: FERROUS SULFATE 142 MG PO SCH (09:00)
[2018-03-13] MEDS ORDERED: [UNRECOGNIZED DRUG - OTHER] PO SCH (09:00)
[2018-03-13] MEDS ORDERED: Fluticasone Propionate Nasal Spray 16 gm Bottle NASAL SCH (09:00)
[2018-03-13] MEDS ORDERED: Azithromycin 250 MG TAB PO SCH (09:00)
[2018-03-13] MEDS ORDERED: VITAMIN D3 PO SCH (09:00)
[2018-03-13] MEDS ORDERED: MULTIVITAMIN WITH MINERALS PO SCH (09:00)
[2018-03-13] MEDS ORDERED: CALCIUM CARBONATE PO SCH (09:00)
[2018-03-13] MEDS ORDERED: ACLIDINIUM BROMIDE INH SCH (09:00)
[2018-03-13] MEDS ORDERED: BREO ELLIPTA INH SCH (09:00)
[2018-03-13] MEDS: guaiFENesin ER 600 MG TAB PO SCH ×2 (09:07→20:49)
[2018-03-13] MEDS: Ferrous Sulfate 325 MG TAB PO SCH (09:07)
[2018-03-13] MEDS: FLUoxetine HCl 20 MG CAP PO SCH (09:08)
[2018-03-13] MEDS: Calcium Carbonate + Vit D 1 TAB PO SCH (09:08)
[2018-03-13] MEDS: Multivitamin W/ Minerals 1 TAB PO SCH (09:08)
[2018-03-13] MEDS: Ondansetron HCl/PF 4 MG/2 ML Vial IVP PRN (09:11)
--- NOTE | 2018-03-13 16:51 | PDOC.PN ---
- Subjective Encounter Start Date: 03/13/18 Encounter Start Time: 16:48 Ms. Frausto was seen today in follow-up of COPD exacerbation, and nausea. She says her breathing is a bit better, but she is very upset about the nausea, which she says has been going on for the past few days. She is afraid it may be her heart, because she says a few years ago something similar happened, and she was told she had a heart attack. - Objective Resuscitation Status: Resuscitation Status FULL:Full Resuscitation MAR Reviewed: Yes Vital Signs & Weight: Vital Signs (12 hours) Temp Pulse Resp BP BP Pulse Ox 03/13/18 16:00 98.1 F 98 18 105/53 L 92 L 03/13/18 13:41 110 H 20 90 L 03/13/18 12:10 99.0 F 110 H 18 154/70 H 92 L 03/13/18 11:19 94 L 03/13/18 07:55 97.6 F 85 18 134/59 L 90 L 03/13/18 07:14 77 16 94 L Weight Weight 132 lb 6.4 oz I&O: 03/12/18 03/13/18 03/14/18 06:59 06:59 06:59 Intake Total 700 2800 Output Total 450 500 Balance 250 2300 Result Diagrams: 03/13/18 05:47 03/13/18 05:47 Phys Exam - Physical Examination HEENT: PERRLA Respiratory: wheezing present decreased air movement Cardiovascular: RRR, no significant murmur, no rub Gastrointestinal: soft, non-tender, positive bowel sounds Musculoskeletal: no edema Dx/Plan (1) Acute and chronic respiratory failure with hypoxia Code(s): J96.21 - ACUTE AND CHRONIC RESPIRATORY FAILURE WITH HYPOXIA Status: Acute (2) Chronic nausea Code(s): R11.0 - NAUSEA Status: Acute (3) COPD exacerbation Code(s): J44.1 - CHRONIC OBSTRUCTIVE PULMONARY DISEASE W (ACUTE) EXACERBATION Status: Acute - Plan * COPD exacerbation- a bit improved overnight * Chronic nausea- ? etiology- possibly due to gastritis from the high dose steroids- will give a dose of Carafate, and change Protonix to IV. Will also check a lipase and another troponin * re-evaluate her symptoms in the AM. * I spoke to her about long term and rehab, and she is not interested
[2018-03-13] MEDS ORDERED: Sucralfate 1 GM/10 ML UDCUP PO SCH (17:00)
[2018-03-13] MEDS: Fluticasone Propionate Nasal Spray 16 gm Bottle NASAL SCH (17:26)
[2018-03-13 17:55] LABS: Troponin I Less than 0.010 ng/mL (< 0.028)
[2018-03-13] MEDS: Rosuvastatin 20 MG TAB PO SCH (20:49)
[2018-03-13] MEDS: Pantoprazole 40 MG VIAL IVP SCH (20:51)
[2018-03-14] MEDS: Pantoprazole 40 MG VIAL IVP SCH (07:27)
[2018-03-14] MEDS ORDERED: predniSONE 20 MG TAB PO SCH (08:00)
[2018-03-14] MEDS: guaiFENesin ER 600 MG TAB PO SCH (10:01)
[2018-03-14] MEDS: FLUoxetine HCl 20 MG CAP PO SCH (10:01)
[2018-03-14] MEDS: Calcium Carbonate + Vit D 1 TAB PO SCH (10:01)
[2018-03-14] MEDS: Multivitamin W/ Minerals 1 TAB PO SCH (10:01)
[2018-03-14] MEDS: Fluticasone Propionate Nasal Spray 16 gm Bottle NASAL SCH (10:02)
[2018-03-14] MEDS: Ferrous Sulfate 325 MG TAB PO SCH (12:43)
[2018-03-14 12:54] VITALS: BP 137/62; TEMP 98
--- NOTE | 2018-03-14 23:43 | DIS ---
DATE OF ADMISSION: 03/12/2018 DATE OF DISCHARGE: 03/14/2018 PRIMARY CARE PHYSICIAN: Kassy Long M.D. DISCHARGE DISPOSITION: Home. PRIMARY DISCHARGE DIAGNOSES: 1. Acute on chronic respiratory failure secondary to chronic obstructive pulmonary disease exacerbat ion. 2. Severe gastritis likely steroid induced. 3. History of coronary artery disease. 4. Aortic stenosis. 5. History of arteriovenous malformations of the gastrointestinal tract. DISCHARGE MEDICATIONS: The patient will continue her home medications and the prescriptions that had been previously prescribed on her recent admission, she only was home one day and did not get a sheridan ce to pick them up and this includes prednisone 20 mg daily, Protonix 40 mg daily, Mucinex 600 mg twi ce a day, Augmentin 250 mg twice a day, Crestor 20 mg at bedtime, Nitrostat 0.4 sublingual p.r.n., mu ltivitamins once daily, Imdur extended release 30 mg daily, DuoNeb q.i.d. as needed, Breo Ellipta 100 /25 mcg 1 inhalation daily, Flonase nasal spray two sprays in each naris daily, fluoxetine 20 mg teagan y, slow iron 142 mg daily, calcium carbonate tablets once a day, aspirin 81 mg daily, Tudorza inhaler 1 puff daily. PROCEDURES DONE DURING ADMISSION: The patient had a CT angiogram of the chest which was negative for pulmonary embolism. There was a stable spiculated region in the right upper lobe and could represen t a scar. CODE STATUS: FULL CODE. ALLERGIES: CEPHALEXIN, LEVOFLOXACIN, and PRAVASTATIN. HOSPITAL COURSE: Ms. Frausto is a pleasant 77-year-old female who came to the emergency room with shor tness of breath. She only recently had been discharged about 2 days prior when she again had difficu lty with breathing. It also appears as if she was having some significant nausea symptoms and it chantelle ears as if this may be a big part of her readmission as she was extremely concerned that the nausea c ould be related to her heart. As she has had heart problems before, we did another set of troponin w hich was negative, also check a lipase which was also negative and placed her on IV Protonix overnigh t as well as gave her a dose of Carafate and this seems to improve her symptoms dramatically. She wa s able to eat, had no more nausea. Her breathing improved and as such she will be discharged home to day with close outpatient followup with her claim administrator.
--- NOTE | 2018-03-15 01:01 | EKG ---
Test Reason : PNA Blood Pressure : / mmHG Vent. Rate : 107 BPM Atrial Rate : 107 BPM P-R Int : 160 ms QRS Dur : 128 ms QT Int : 386 ms P-R-T Axes : 057 -05 119 degrees QTc Int : 515 ms Sinus tachycardia Possible Left atrial enlargement Left bundle branch block Abnormal ECG Confirmed by WOOD PUGA DO ([id number]), sound editor NICOLE ANDREWS ([id number]) on 03/15/2018 1:01:10 AM Referred By: Confirmed By:WOOD PUGA DO
== END 2018-03-14 17:52 | disposition home or self-care (01) ==
LOC: ERS 17:21 → ONC 22:11
PROVIDERS: ADMIT Hospitalist; ATTEND Hospitalist
DX: J44.1 Chronic obstructive pulmonary disease with (acute) exacerbation (principal); J96.21 Acute and chronic respiratory failure with hypoxia; K29.70 Gastritis, unspecified, without bleeding; I25.10 Atherosclerotic heart disease of native coronary artery without angina pectoris; I35.0 Nonrheumatic aortic (valve) stenosis; Z88.0 Allergy status to penicillin; Z88.8 Allergy status to other drugs, medicaments and biological substances; Z79.82 Long term (current) use of aspirin; Z79.899 Other long term (current) drug therapy
CPT/HCPCS: 71045; 71275; 80048; 80053; 82550; 82553; 83690; 84484 ×4; 85007; 85025; 85027; 85379; 87040; 93005; 94640 ×4; 96365; 96375 ×3; 96376 ×3; 99285; G0378 ×2; 36415; 36416; 96374; A4216; C9113; J0456; J2405; J2550; J2920; J2930; J7050; J7506; J7620; Q0162

== ENCOUNTER 2018-05-16 21:32 | Emergency (ER) | payer MEDICARE ==
--- NOTE | 2018-05-16 22:24 | RAD ---
RIGHT SHOULDER THREE VIEWS: 05/16/18 HISTORY: Right shoulder pain. The bones are demineralized. There are arthritic changes in the AC and glenohumeral joints. No signs of fracture or dislocation. IMPRESSION: Mild arthritic changes of the shoulder. POS: [facility]
[2018-05-16] MEDS ORDERED: Morphine 4 MG/ML VIAL ONE (23:00)
--- NOTE | 2018-05-16 23:16 | RAD ---
RIGHT HAND THREE VIEWS: 05/16/18 HISTORY: Fall with injury to hand. The bones are demineralized. There are arthritic changes of the hand. Changes are most pronounced at the index finger. No acute fracture identified. IMPRESSION: No evidence of acute fracture. POS: [facility]
--- NOTE | 2018-05-16 23:34 | CT ---
CT OF LUMBAR SPINE PERFORMED WITHOUT CONTRAST ENHANCEMENT: 05/16/18 HISTORY: Low back pain status post fall. The bones are demineralized. There is some fairly minimal compression changes of the superior end trice te of L1. There is 2 to 3 mm of bony retropulsion. This is felt to probably be an acute to subacute i njury. The remainder of the vertebral bodies maintain normal height. There is disc narrowing at L4-5. Incidental note is made of a nonobstructing left renal calculus. Review of the disc levels show no signs of any definite disc herniation, canal or significant foramin al narrowing. IMPRESSION: Diffuse bony demineralization with fairly minimal compression changes involving the superior end plat e of L1 of less than 10%. POS: [facility]
[2018-05-17] MEDS ORDERED: Bacitracin Zinc 1 Packet ONE (00:03)
== END 2018-05-17 00:45 | disposition home or self-care (01) ==
LOC: ERS 21:32
DX: S32.019A Unspecified fracture of first lumbar vertebra, initial encounter for closed fracture (principal); S61.411A Laceration without foreign body of right hand, initial encounter; J44.9 Chronic obstructive pulmonary disease, unspecified; I25.2 Old myocardial infarction; Z87.891 Personal history of nicotine dependence; Z79.82 Long term (current) use of aspirin; Z79.899 Other long term (current) drug therapy; W01.0XXA Fall on same level from slipping, tripping and stumbling without subsequent striking against object, initial encounter
CPT/HCPCS: 72131; 94760; 96372; J2270

== ENCOUNTER 2018-06-12 10:11 | Outpatient (CLI) | payer MEDICARE ==
--- NOTE | 2018-06-12 11:39 | RAD ---
LUMBAR SPINE 2 VIEWS: HISTORY: Low back pain. COMPARISON: 05/16/2018. FINDINGS: There are 5 lumbar-type vertebrae. Pedicles are intact. Compression of the L1 superior end plate parada s progressed slightly, now estimated at 20%. Minimal retropulsion. Other vertebral body heights are maintained Disk space narrowing and minimal degenerative spondylolisthesis at the L4-5 level. Oste ophytosis throughout the lower facets. Calcification over the arterial structures. IMPRESSION: 1. Slight further progression of the L1 superior end plate compression. 2. Degenerative changes are otherwise stable. 3. Atherosclerosis. POS: [facility]
== END 2018-06-12 10:12 | disposition home or self-care (01) ==
LOC: TBSIIMAG 10:11
PROVIDERS: ATTEND Surgery
DX: S32.009A Unspecified fracture of unspecified lumbar vertebra, initial encounter for closed fracture (principal); M47.896 Other spondylosis, lumbar region; I70.90 Unspecified atherosclerosis
CPT/HCPCS: 72100

== ENCOUNTER 2018-06-12 13:46 | Outpatient (CLI) | payer MEDICARE ==
--- NOTE | 2018-06-12 15:15 | RAD ---
THREE VIEWS LEFT HAND: HISTORY: Left hand pain since fall. FINDINGS: AP, lateral, and oblique views of the left hand were obtained. Three views left hand demonstrate some osteoarthritic changes seen in the DIP joints of the 1st throu gh 5th digits. Mild osteoarthritic and sclerotic changes seen in the articulation of the scaphoid and trapezium and trapezoid bones. There are also mild sclerotic and osteoarthritic changes seen in the articulation o f the 1st carpometacarpal joint. There is a subtle area of radiolucency along the medial-most corner involving the middle phalanx 3rd digit left hand. This is visualized on the oblique view and may represent a bone spur versus a minim ally displaced corner fracture. Correlate with clinical exam. No other obvious left hand fracture i s seen. IMPRESSION: Possible tiny avulsion fracture involving the proximal-most aspect middle phalanx 3rd digit left hand . POS: [facility]
== END 2018-06-12 13:47 | disposition home or self-care (01) ==
LOC: SCSRAD 13:46
PROVIDERS: ATTEND Nurse Practitioner Family
DX: M79.642 Pain in left hand (principal)
CPT/HCPCS: 72100

== ENCOUNTER 2018-07-10 10:07 | Outpatient (CLI) | payer MEDICARE ==
--- NOTE | 2018-07-10 12:14 | RAD ---
RADIOGRAPH LUMBAR SPINE 2 VIEWS: 07/10/2018 HISTORY: A 77-year-old female for followup of a vertebral compression fracture due to fall. COMPARISON: 06/12/2018 FINDINGS: There are five lumbar type vertebrae. Diffuse osteopenia. There has been interval slight further lo ss of height of the L1 compression fracture, now with approximately 50% loss of height. Mild bony re tropulsion of the posterior aspect of the superior endplate qualifies this as a burst fracture. The rest of the lumbar vertebral body heights are maintained. Mild grade 1 anterolisthesis of L4 on L5 d ue to facet DJD. Moderate disk space narrowing at L4-L5. Mild grade 1 anterolisthesis of L5 on S1 d ue to facet DJD. IMPRESSION: 1. Interval further loss of height of the subacute, traumatic burst fracture of the L1 vertebra. 2. Grade 1 spondylolisthesis at L4-L5 and L5-S1 due to facet osteoarthrosis. 3. Moderate degenerative disk disease at L4-L5. KULWANT [] POS: [facility]
== END 2018-07-10 10:08 | disposition home or self-care (01) ==
LOC: TBSIIMAG 10:07
PROVIDERS: ATTEND Surgery
DX: M54.5 Low back pain (principal); S32.011D Stable burst fracture of first lumbar vertebra, subsequent encounter for fracture with routine healing; M51.36 Other intervertebral disc degeneration, lumbar region; M43.16 Spondylolisthesis, lumbar region; M43.17 Spondylolisthesis, lumbosacral region; M47.816 Spondylosis without myelopathy or radiculopathy, lumbar region; M47.817 Spondylosis without myelopathy or radiculopathy, lumbosacral region
CPT/HCPCS: 72100

== ENCOUNTER 2018-08-12 14:30 | Outpatient (CLI) | payer MEDICARE ==
--- NOTE | 2018-08-12 15:17 | RAD ---
LUMBAR SPINE: Indications: Follow up. Comparison: 07-10-18 FINDINGS: The compression deformity at L1 appears stable. Superior endplate compression at this vertebra result s in loss of central and anterior height. The L2, L3, L4, and L5 level maintain height. There are degenerative changes noted with spurring from the lumbar vertebrae. Slight anterolisthesis at L4-5 and L5-S1 appear stable. IMPRESSION: The compression deformity at L1 appears stable from 07-10-18. The other degenerative changes of the l umbar spine are also stable in appearance. POS: [facility]
== END 2018-08-12 14:31 | disposition home or self-care (01) ==
LOC: TBSIIMAG 14:30
PROVIDERS: ATTEND Surgery
DX: S22.008A Other fracture of unspecified thoracic vertebra, initial encounter for closed fracture (principal); M43.9 Deforming dorsopathy, unspecified; M47.896 Other spondylosis, lumbar region
CPT/HCPCS: 72100

== ENCOUNTER 2018-09-21 12:22 | Outpatient (CLI) | payer MEDICARE ==
[2018-09-21] MEDS ORDERED: ISOVUE-370 76%-LOCM 1 ML ONE (12:48)
--- NOTE | 2018-09-21 15:17 | CT ---
CT THORAX WITH IV CONTRAST: 09/21/2018 HISTORY: Shortness of breath. Follow-up lung nodule. COMPARISON: 03/11/2018 and 11/27/2017 FINDINGS: The previously described, small, spiculated nodule with adjacent linear densities and pleural thicken ing is again present within the posteromedial aspect of the right upper lobe. This is unchanged in s ize, again measuring approximately 1.4 cm. However, there is now a central area of cavitation within this nodular density. No new pulmonary nodule or mass is seen. Calcified granuloma is again seen in the left lower lobe No pleural effusion is present. Emphysematous changes are again seen throughout the lungs bilaterally. There is mild interstitial th ickening again seen within the upper lung zones, primarily in each lung apex. Vascular calcifications are again seen in the coronary arteries, as well as involving the thoracic an d visualized upper abdominal aorta. Post surgical changes related to aortic valve replacement are ag ain present. There is no evidence of mediastinal, hilar, or axillary lymphadenopathy. A subcentimeter, jgt-hvmul-pv-characterize, hypodense lesion is seen in the superior pole right kidne y. Post cholecystectomy changes are partially imaged. IMPRESSION: 1. Spiculated, nodular density within the right upper lobe, which has developed a central area of ca vitation when compared to the prior examination but is stable in size. Neoplastic process cannot be entirely excluded. 3. Chronic lung changes with evidence of chronic obstructive pulmonary disease. POS: [facility]
== END 2018-09-21 12:23 | disposition home or self-care (01) ==
LOC: BICCT 12:22
PROVIDERS: ATTEND Internal Medicine Pulmonary Disease
DX: R91.1 Solitary pulmonary nodule (principal); J98.4 Other disorders of lung; J44.9 Chronic obstructive pulmonary disease, unspecified; A15.0 Tuberculosis of lung
CPT/HCPCS: 71260

== ENCOUNTER 2019-03-11 09:27 | Outpatient (CLI) | payer MEDICARE ==
--- NOTE | 2019-03-11 12:02 | CT ---
CT OF CHEST PERFORMED WITH INTRAVENOUS CONTRAST ENHANCEMENT: HISTORY: Followup of lung nodule. The patient has a history of COPD. COMPARISON: A 09/21/2018 study. FINDINGS: There are severe emphysematous lung changes seen. The spiculated nodular density seen in more of the posterior segment of the right upper lobe is stable. It measures approximately 12 mm in size. It d oes have extension towards the pleura and is what appears to be more of an area of scarring. On the left side, there has now been development of a new spiculated nodular density which measures 1 1-12 mm in size and was not present on the previous exam. No additional pulmonary nodules are identified. There is no significant mediastinal or hilar adenopathy. A stent is seen in the region of the ascend ing aorta and aortic valve region, stable. Coronary calcifications are present. Visualized liver parenchyma shows no focal findings. Right and left adrenal glands re normal. IMPRESSION: 1. Development of a new 12 mm spiculated left upper lobe pulmonary nodule not present on the prior e xamination. It has very suspicious features. 2. The nodular density with the tiny central cavitation within the right upper lobe is stable. 3. Severe emphysematous lung change. POS: [facility]
== END 2019-03-11 09:28 | disposition home or self-care (01) ==
LOC: BICCT 09:27
PROVIDERS: ATTEND Internal Medicine Pulmonary Disease
DX: R91.1 Solitary pulmonary nodule (principal); J98.4 Other disorders of lung
CPT/HCPCS: 71260

== ENCOUNTER 2019-06-08 12:42 | Outpatient (CLI) | payer MEDICARE ==
--- NOTE | 2019-06-08 16:26 | RAD ---
CHEST 2 VIEWS: Date: 06/08/19 HISTORY: Dyspnea. COMPARISON: Chest CT fitness services manager film dated 03/11/19. FINDINGS: Bilateral hyperinflation and chronic interstitial and reticulonodular parenchymal changes noted bilat erally, overall stable. Status post TAVR. No confluent pneumonia. No overt edema. No significant pleu ral effusion. IMPRESSION: Hyperinflation and chronic lung changes. POS: [facility]
== END 2019-06-08 12:43 | disposition home or self-care (01) ==
LOC: BICRAD 12:42
PROVIDERS: ATTEND Internal Medicine Pulmonary Disease
DX: R06.00 Dyspnea, unspecified (principal); R91.8 Other nonspecific abnormal finding of lung field
CPT/HCPCS: 71046

== ENCOUNTER 2019-06-22 06:46 | Inpatient (IN) | payer MEDICARE ==
[2019-06-22] MEDS ORDERED: methylPREDNISolone Sod Succ/PF 125 MG/2 ML VIAL ONE (06:55)
[2019-06-22] MEDS ORDERED: Magnesium 2 GM/50 ML BAG (IN WATER) ONE (06:55)
[2019-06-22 07:23] LABS: #Eosinphils 0.1 thou/uL (0.0-0.7); #Lymphocytes 0.7 thou/uL (1.20-3.40); #Monocytes 0.8 thou/uL (0.11-0.59); #Neutrophils 7.9 thou/uL (1.40-6.50); %Basophils 0.4 % (0.0-1.0); %Eosinophils 0.8 % (0.0-10.0); %Lymphocytes 6.8 % (21.0-51.0); %Monocytes 8.2 % (0.0-10.0); %Neutrophils 83.8 % (42.0-75.0); Hemoglobin 14.8 g/dL (12.0-16.0); Mean Corpuscular HGB CONC 32.1 g/dL (32.0-36.0); Mean Corpuscular Hemoglobin 31.5 pg (27.0-31.0); Mean Corpuscular Volume 98.1 fL (78.0-98.0); Mean Platelet Volume 6.8 fL (7.4-10.4); Platelet Count 209 thou/uL (130-400); RBC Distribution Width 11.7 % (11.5-14.5); Red Blood Cell (RBC) Count 4.71 mill/uL (4.20-5.40); White Blood Cell (WBC) Count 9.5 thou/uL (4.8-10.8)
[2019-06-22 07:25] LABS: Base Excess-Venous 5.7 mmol/L (-2.0 to 3.0); Bicarbonate (HCO3v) 32.9 mmol/L (22.0-28.0); CO2 Tension (PvCO2) 56.2 mmHg (40.0-50.0); Calcium, Ionized 1.08 mmol/L (See Comments:); Chloride 104 mmol/L (98-107); Sodium 143 mmol/L (138-145); T. Carbon Dioxide 34.6 mmol/L (22.0-28.0)
[2019-06-22 07:29] LABS: ALT (SGPT) 17 U/L (8-55); AST (SGOT) 26 U/L (5-34); Albumin 4.5 g/dL (3.4-4.8); Alkaline Phosphatase 60 U/L (40-110); Anion Gap 13 mmol/L (10-20); BUN (Urea Nitrogen) 10 mg/dL (9.8-20.1); Bilirubin, Total 0.9 mg/dL (0.2-1.2); CK (CPK) 122 U/L (29-168); Calc. Creatinine Clearance 0 mL/min (70-130); Calcium 9.9 mg/dL (7.8-10.44); Carbon Dioxide 36 mmol/L (23-31); Chloride 100 mmol/L (98-107); Estimated GFR-MDRD 64; Globulin 3.2 g/dL (2.4-3.5); Glucose 129 mg/dL (83-110); Potassium 3.7 mmol/L (3.5-5.1); Protein, Total 7.7 g/dL (6.0-8.3); Sodium 145 mmol/L (136-145)
--- NOTE | 2019-06-22 07:43 | RAD ---
Exam: Chest one view HISTORY:Dyspnea Comparison: 06/08/2019, 03/11/2018 FINDINGS: Cardiac silhouette:Stable cardiac silhouette. Stable stent projecting over the cardiac silhouette. Aorta: Atherosclerosis. Pulmonary vessels: Normal Costophrenic angles: Clear LUNGS: Hyperinflation. Chronic changes. No masses or consolidation. Pneumothorax: None Osseous abnormalities: None IMPRESSION: 1. No acute cardiopulmonary process 2. Hyperinflation. Chronic changes. 3. Atherosclerosis.
[2019-06-22 07:59] LABS: CKMB 7.3 ng/mL (0-6.6)
[2019-06-22] MEDS ORDERED: Ipratropium Bromide 2.5 ml Neb NEB PRN (10:21)
[2019-06-22] MEDS ORDERED: Nitroglycerin 0.4 MG TAB (25 Tab Bottle) SL PRN (10:30)
[2019-06-22 10:31] LABS: Troponin I 0.155 ng/mL (< 0.028)
[2019-06-22 14:42] LABS: Troponin I 0.112 ng/mL (< 0.028)
--- NOTE | 2019-06-22 15:46 | HP ---
CHIEF COMPLAINT: Dyspnea. HISTORY OF PRESENT ILLNESS: This is an 78-year-old female with past medical history significant for COPD, CAD. The patient is seen by Dr. Linda and Dr. Whittaker in the past, has been on home O2, presented to the ED today with worsening of symptoms, brought by the family members. The patient was seen and evaluated by the ER physician and placed the patient on respiratory therapy protocol and BiPAP. The patient currently is communicating well. Requested DNR status. The patient will be admitted to [facility] and appropriate consults were placed. PAST MEDICAL HISTORY: 1. COPD. 2. Dyslipidemia. 3. CAD. 4. Hypertension. HOME MEDICATIONS: 1. Aspirin 81 mg p.o. daily. 2. Fluoxetine 20 mg p.o. daily. 3. Isosorbide 30 mg p.o. daily. 4. Nitroglycerin 0.4 mg sublingual p.r.n. 5. Pantoprazole 40 mg p.o. daily. 6. Rosuvastatin 20 mg p.o. daily. FAMILY HISTORY: Noncontributory. ALLERGIES: CEPHALEXIN, LEVOFLOXACIN, AND PRAVASTATIN. REVIEW OF SYSTEMS: CONSTITUTIONAL: Generalized weakness present. HEENT: Negative. PULMONARY: As above. CARDIOVASCULAR: Negative. NEUROLOGICAL: Negative. MUSCULOSKELETAL: Negative. All other systems review negative as stated in the past and above. PHYSICAL EXAMINATION: GENERAL: The patient is alert and oriented x3. Able to breath with the help of BiPAP. VITAL SIGNS: Stable. Afebrile. HEENT: PERRL. Atraumatic and normocephalic. Dry mucous membranes. NECK: Supple. No lymphadenopathy. LUNGS: Decreased breath sounds bilaterally. Expiratory wheezes throughout the lungs. CARDIOVASCULAR: S1 and S2 heard. Tachycardia present. ABDOMEN: Soft. Bowel sounds present. Nontender, nondistended. EXTREMITIES: No cyanosis, calf tenderness, or edema. CENTRAL NERVOUS SYSTEM: Nonfocal. DIAGNOSTIC DATA: Lab work revealed elevated troponin, second set as well slightly elevated, at 0.155. Her chemistry shows sodium 145, potassium 3.7, BUN 10, and creatinine 0.85. Venous blood gas was obtained, it is inconclusive. Mild respiratory acidosis noted. PCO2 of 56.2. CBC shows WBC 9.5, hemoglobin 14.8, and platelets 209. EKG, LBBB, it is unclear if it is new onset, so we went ahead and notified the fixed income trading vice president. DIAGNOSTIC IMPRESSION: 1. Severe respiratory acidosis with underlying chronic obstructive pulmonary disease exacerbation, currently on BiPAP, requiring IMCU admission. 2. Elevated troponin, rule out myocardial infarct with ST elevation myocardial infarction versus non-ST elevation myocardial infarction as the patient had elevated left bundle-branch block. 3. History of anxiety, on fluoxetine. 4. Hypertension. 5. Coronary artery disease. Dr. Whittaker had been notified. PLAN: The patient will be admitted to [facility], respiratory therapy protocol, oxygen as needed, Solu-Medrol IV 40 mg given. DVT prophylaxis was started and restart home medications and Pulmonology and Cardiology consultation obtained. The patient and family requested for DNR and appropriate orders were placed. The patient's condition is rather guarded. Discussed with the patient as well as family members. Job ID: [id number]
[2019-06-22] MEDS: methylPREDNISolone Sod Succ 40 MG VIAL IVP SCH ×2 (18:43→20:25)
[2019-06-22] MEDS: Rosuvastatin 20 MG TAB PO SCH (20:26)
[2019-06-23] MEDS: methylPREDNISolone Sod Succ 40 MG VIAL IVP SCH ×4 (02:13→20:47)
[2019-06-23] MEDS: Albuterol Sulfate 2.5 mg/3 ml Neb NEB PRN ×2 (02:23→08:28)
[2019-06-23] MEDS ORDERED: Temazepam 15 MG CAP PO SCH (05:30)
[2019-06-23] MEDS: FLUoxetine HCl 20 MG CAP PO SCH (09:41)
[2019-06-23] MEDS: Isosorbide Mononitrate (ER) 30 MG TAB PO SCH (09:41)
[2019-06-23] MEDS: Aspirin Chewable 81 MG TAB PO SCH (09:41)
[2019-06-23] MEDS: Enoxaparin Sodium 40 MG/0.4 ML SYRINGE SC SCH (09:41)
[2019-06-23] MEDS ORDERED: Promethazine HCl 25 MG/ML VIAL IM/IV PRN (10:43)
[2019-06-23 11:54] LABS: Actual Bicarbonate (HCO3a) 31.2 mEq/L (22-28); Base Excess (BEa) 1.5 mEq/L (-2.0 to +3.0); Calcium, Ionized 1.21 mmol/L (1.12-1.30); Carboxyhemoglobin (COHb) 0.7 gm% (0.0-3.0); Hemoglobin (Hb) 14.1 g/dL (12.0-16.0); Potassium - ABG Lab 4.33 mmol/L (3.70-5.30)
[2019-06-23 11:57] LABS: CO2 Tension 74.4 mmHg (35.0-45.0); Puncture Site RRA; pH, Arterial 7.24 (7.35-7.45)
[2019-06-23] MEDS: Azithromycin 250 MG in Sodium Chloride 0.9% 250 ML 250 ML IVPB SCH (11:59)
--- NOTE | 2019-06-23 12:12 | CON ---
DATE OF CONSULTATION: 06/23/2019 This encompassed 40 minutes of time, of that time, greater than 50% was spent with the patient and/or the patient's unit in the hospital. HISTORY OF PRESENT ILLNESS: The patient is an 78-year-old female, who has been having difficulty with several days with increasing shortness of breath. She came to the hospital yesterday morning. She has been on and off BiPAP since that time. She now has some nausea. She has several distraught family members in the room. PAST MEDICAL HISTORY: 1. Severe COPD followed by Dr. Linda. 2. Hyperlipidemia. 3. Coronary artery disease. 4. Hypertension. 5. AV malformations. 6. Aortic stenosis. PAST SURGICAL HISTORY: Cholecystectomy. She has also had some type of aortic stent placement. MEDICATIONS: Prior to admission; 1. Aspirin 81 mg daily. 2. Fluoxetine 20 mg daily. 3. Isosorbide 30 mg daily. 4. Nitroglycerin p.r.n. 5. Breo Ellipta unknown dose one puff daily. 6. DuoNeb periodically as needed. 7. Pantoprazole 40 mg daily. 8. Rosuvastatin 20 mg daily. 9. She is on oxygen at 2 to 3 L nasal cannula. FAMILY MEDICAL HISTORY: Unremarkable. ALLERGIES: CEPHALEXIN, LEVAQUIN, AND PRAVASTATIN. PHYSICAL EXAMINATION: VITAL SIGNS: Temperature 97.2, pulse 117, blood pressure 135/113, and O2 saturation 92%. GENERAL: She is sitting up in bed, stooped over a trash can, thinking that she has to throw up. HEENT: Unremarkable. NECK: No adenopathy or JVD. LUNGS: She has diffuse mild wheezing bilaterally. CARDIAC: S1 and S2. Regular. ABDOMEN: Soft and nontender. EXTREMITIES: No clubbing or cyanosis. Severe muscle wasting. LABORATORY DATA: White blood cell count 9.5, hematocrit 46.2, and platelet count 209. A pH of 7.35, pCO2 of 56, and pO2 of 43 (venous blood gas). Sodium 143, potassium 4, chloride 104, CO2 of 36, BUN 10, creatinine 0.8, and glucose 129. Chest x-ray shows hyperinflation without evidence of mass, effusion, or infiltrate. ASSESSMENT: 1. Chronic obstructive pulmonary disease with exacerbation. 2. Acute on chronic hypoxic respiratory failure, requiring mechanical ventilation. 3. Nausea. PLAN: 1. I will give her Phenergan for nausea. 2. Ativan for anxiolytic purpose. 3. Continue steroids, nebulization therapy, and add some azithromycin for antibiotic coverage. 4. BiPAP as needed. Job ID: [id number]
--- NOTE | 2019-06-23 13:57 | PDOC.HOSPP ---
- Subjective Encounter Date: 06/23/19 Encounter Time: 13:54 Subjective: The patient is breathing shallow with the current Bipap setting - Objective Vital Signs & Weight: Vital Signs (12 hours) Temp Pulse Resp Pulse Ox 06/23/19 11:22 104 H 26 H 99 06/23/19 11:12 96.8 F L 06/23/19 08:30 99 33 H 99 06/23/19 08:28 98 27 H 98 06/23/19 08:00 100 06/23/19 07:53 97.2 F L 06/23/19 04:00 98.0 F 06/23/19 02:23 99 27 H 94 L Weight Weight 116 lb 14.4 oz Most Recent Monitor Data Heart Rate from ECG 99 NIBP 140/70 NIBP BP-Mean 93 Respiration from ECG 22 SpO2 100 I&O: 06/22/19 06/23/19 06/24/19 06:59 06:59 06:59 Intake Total 260 100 Output Total 600 Balance -340 100 Result Diagrams: 06/22/19 07:00 06/22/19 07:00 Hospitalist ROS - Medication Medications: Active Medications Generic Name Dose Route Start Last Admin Trade Name Freq PRN Reason Stop Dose Admin Aspirin 81 mg 06/23/19 09:00 06/23/19 09:41 Aspirin Chewable PO 81 mg DAILY SONIA Administration Enoxaparin Sodium 40 mg 06/23/19 09:00 06/23/19 09:41 Lovenox SC 40 mg 0900 SONIA Administration Fluoxetine HCl 20 mg 06/23/19 09:00 06/23/19 09:41 Prozac PO 20 mg DAILY SONIA Administration Azithromycin 250 mg/ Sodium 250 mls @ 250 mls/hr 06/23/19 11:00 06/23/19 11: 59 Chloride IVPB 250 mls 1100 SONIA Administration Isosorbide Mononitrate 30 mg 06/23/19 09:00 06/23/19 09:41 Imdur Er PO 30 mg DAILY SONIA Administration Methylprednisolone Sodium Succinate 40 mg 06/22/19 14:00 06/23/19 09:41 Solu-Medrol IVP 40 mg 0200,0800,1400,2000 SONIA Administration Pantoprazole Sodium 40 mg 06/23/19 09:00 06/23/19 09:41 Protonix PO 40 mg DAILY SONIA Administration Promethazine HCl 12.5 mg 06/23/19 10:43 06/23/19 11:08 Phenergan IM/IV 12.5 mg Q6H PRN Administration Nausea/Vomiting Rosuvastatin Calcium 20 mg 06/22/19 21:00 06/22/19 20:26 Crestor PO 20 mg HS SONIA Administration - Exam General Appearance: NAD, awake alert, ill appearing Eye: PERRL, anicteric sclera, scleral icterus ENT: normocephalic atraumatic, no oropharyngeal lesions, moist mucosa, dry oral mucosa Neck: supple, symmetric, no JVD, no thyromegaly, no lymphadenopathy, no carotid bruit, JVD Heart: RRR, no murmur, no gallops, no rubs, normal peripheral pulses, irregular , diminshed peripheral pulses, murmur present, II/IV, III/IV Respiratory: CTAB, no wheezes, no rales, no ronchi, normal chest expansion, no tachypnea, normal percussion, rales, rhonchi, tachypneic, wheezes Gastrointestinal: diminished bowl sounds Extremities: no cyanosis, no clubbing, no edema, 1+ LE edema, 2+ LE edema, clubbing Neurological: cranial nerve grossly intact, normal sensation to touch, no weakness, no focal deficits, no new deficit, facial droop, hemiplegia, speech deficit, vision deficit Hosp A/P (1) Acute and chronic respiratory failure with hypoxia Code(s): J96.21 - ACUTE AND CHRONIC RESPIRATORY FAILURE WITH HYPOXIA Status: Acute (2) COPD exacerbation Code(s): J44.1 - CHRONIC OBSTRUCTIVE PULMONARY DISEASE W (ACUTE) EXACERBATION Status: Acute (3) NSTEMI (non-ST elevated myocardial infarction) Code(s): I21.4 - NON-ST ELEVATION (NSTEMI) MYOCARDIAL INFARCTION Status: Acute - Plan plan discussed w/ family Consults: Palliative Care (Spoke to daughter at length, son(saw maker) may be visiting soon this week, Advised to meet with palliative care team, possible hospice consult. ABG to monitor the co2.Apreciate pulmonology consult. Apreciate Cardiology consult.)
[2019-06-23] MEDS: Lorazepam 2 MG/ML VIAL SLOW IVP PRN (14:53)
--- NOTE | 2019-06-23 15:17 | PDOC.PALCO ---
Palliative Care Consult - Consult Details Requesting Physician: Dr Miller Reason for Consult: goals of care Family Members Present: Daughter, grandson - Pertinent HPI Patient on home O2. Daughter states that her mother had increase in shortness of breath and weakness over the past 24 hours. Presented to the emergency room for shortness of breath and no alleviating factors. Admitted to [facility] for medical management. Family at bedside. - Pertinent PMH COPD, CAD, HDL, Hypertension - Social History Smoking Status: Unknown if ever smoked Alcohol Use: none Drug Use History: none Living Situation: with family/parents - Medications MAR Reviewed: Yes - Allergies Allergies/Adverse Reactions: Allergies Allergy/AdvReac Type Severity Reaction Status Date / Time cephalexin Allergy Verified 06/23/19 02:54 levofloxacin [From Levaquin] Allergy Verified 06/23/19 02:54 pravastatin [From Pravachol] Allergy Verified 06/23/19 02:54 - Subjective In bed, significant weakness. Non responsive at time of assessment. Labored respirations with accessory muscle use, Bipap. Unable to perform a review of systems secondary to patient inability to communicate. - Objective Vital Signs: Vital Signs - Most Recent Temp Pulse Resp BP Pulse Ox 96.8 F L 104 H 26 H 99 06/23/19 11:12 06/23/19 11:22 06/23/19 11:22 06/23/19 11:22 Palliative Performance Scale: 20 - Physical Exam Constitutional: moderate distress Respiratory: tachypnea Deviation from normal: adventicious lung sounds, labored respirations with accessory muscle use Deviation from normal: tachycardia, distant heart sounds Gastrointestinal: soft, no distention, positive bowel sounds Musculoskeletal: pulses present, no clubbing Deviation from normal: non responsive at time of assessment Deviation from normal: fair/poor turgor, bursing to upper ext, fragil skin - Problem List (1) Palliative care encounter Code(s): Z51.5 - ENCOUNTER FOR PALLIATIVE CARE Current Visit: Yes Status: Acute (2) Acute and chronic respiratory failure with hypoxia Code(s): J96.21 - ACUTE AND CHRONIC RESPIRATORY FAILURE WITH HYPOXIA Current Visit: No Status: Acute (3) COPD exacerbation Code(s): J44.1 - CHRONIC OBSTRUCTIVE PULMONARY DISEASE W (ACUTE) EXACERBATION Current Visit: No Status: Acute - Plan/Recommendations Plan: Visited with patient daughter and grandson at length. Discussed patient wishes that she had expressed to her daughter who is MPOA. Patient had in the past stated that she would not want excessive measures and would not want to suffer. Teaching with family in relation to end of life,comfort measures. hospice care and *Family arriving from [place] *Initiate comfort measures when family arrives *May consider hospice in the morning for GIP as patient at the current time is too fragile to travel *Morphine 2mg ivp q 1hr prn for dyspnea Communicated with Dr Miller Palliative Care will continue to support family and follow up 06/24 for discussion of Hospice. [90] minutes spent on this encounter with >50% of the time in counseling and coordination of care. Thank you for this very appropriate consult.
[2019-06-23] MEDS ORDERED: Morphine 2 MG/ML SYRINGE SLOW IVP PRN (15:41)
[2019-06-23] MEDS ORDERED: Metoprolol Tartrate 5 MG/5 ML VIAL IVP SCH (16:30)
[2019-06-23] MEDS: Morphine 2 MG/ML SYRINGE SLOW IVP PRN (17:41)
--- NOTE | 2019-06-23 19:35 | CON ---
DATE OF CONSULTATION: HISTORY OF PRESENT ILLNESS: Naomy Frausto is an 78-year-old white female patient of Dr. Whittaker, who in 2014 was found to have severe aortic stenosis and coronary artery disease. She apparently underwent stent placement (probably circumflex and diagonal) and TAVR in [place]. She also has been hospitalized with shortness of breath and chest discomfort and found to be severely anemic in the past. In September 2017, she had a PET scan in the office, which was felt to be probably normal. Also, her last echocardiogram in the office was in October 2018, which revealed ejection fraction of 55% to 60% with evidence of diastolic dysfunction and aortic valve replacement was in place. The daughter now states that she has been having increasing chest discomfort over the last several days. She has had increased shortness of breath yesterday and was brought to the emergency room. She on chest x-ray had hyperinflated lungs with chronic changes, but apparently no infiltrates. She has been placed on BiPAP, but continues to be hypoxic and has decided to be DNR. PAST MEDICAL HISTORY: Severe COPD, coronary artery disease, hyperlipidemia, gastrointestinal AV malformations, hypertension, and bleeding ulcer. PAST SURGICAL HISTORY: Cholecystectomy, coronary stent placement, and TAVR. MEDICATIONS: 1. Aspirin 81 daily. 2. Ferrous sulfate 142 daily. 3. Biotin 5000 mcg daily. 4. DuoNebs q.i.d. 5. Isosorbide mononitrate 30 daily. 6. Protonix 40 daily. 7. Prednisone 5 mg daily. 8. Rosuvastatin 20 mg at bedtime. ALLERGIES: CEPHALEXIN, LEVOFLOXACIN, PRAVASTATIN, IODINE, AND DEXAMETHASONE. REVIEW OF SYSTEMS: Unobtainable due to the patient's mental status changes. PHYSICAL EXAMINATION: VITAL SIGNS: Pulse 130, respiratory rate 34 on BiPAP, and blood pressure 135/ 79. CHEST: Reveals expiratory wheezing bilaterally. CARDIOVASCULAR: S1 and S2 normal without any S3 or S4. I do not hear a significant murmur at this time. ABDOMEN: Normal bowel sounds without tenderness. EXTREMITIES: Revealed no edema. LABORATORY DATA: EKG revealed sinus tachycardia with left bundle-branch block ( EKG from 2018 also showed left bundle branch block). Hemoglobin 14.8, hematocrit 46.2, white count 9500, platelets 209,000. A pH 7.24, pCO2 of 74.4, pO2 of 177.2. Sodium 145, potassium 3.7, chloride 100, carbon dioxide 36, BUN 10, and creatinine 0.85. Troponin I is up to 0.155. IMPRESSION: 1. Severe chronic obstructive pulmonary disease with respiratory failure with hypoxemia, now with severe CO2 retention. 2. Icg-US-unfttezby myocardial infarction, probably type 2. 3. History of coronary artery stenting and transcatheter aortic valve replacement. 4. Normal ejection fraction on last echo 7 months ago. 5. History of anemia. However, at the present time, blood counts were normal. PLAN: The patient currently is receiving neb treatments, steroids, and antibiotics. With her severe CO2 retention and expiratory wheezing, I feel this is probably more of a COPD exacerbation that related to specific cardiac cause. Echocardiogram will be performed to reassess left ventricular function. However, with her CO2 retention and wishing to be DNR, her outlook is certainly poor. Job ID: [id number] ADRIENNE
[2019-06-23] MEDS ORDERED: Acetaminophen 650 MG Suppository PR PRN (20:35)
[2019-06-23] MEDS ORDERED: Acetaminophen 650 MG/20.3 ML UDCUP PO PRN (20:35)
[2019-06-23] MEDS ORDERED: Acetaminophen 1,000 MG in Premix Bag 1 BAG IVPB SCH (20:45)
[2019-06-23] MEDS: Rosuvastatin 20 MG TAB PO SCH (20:56)
[2019-06-24] MEDS: methylPREDNISolone Sod Succ 40 MG VIAL IVP SCH ×4 (02:05→21:08)
[2019-06-24 08:17] LABS: Cardiac Risk 2.3 (Less than 4.5)
--- NOTE | 2019-06-24 08:39 | PDOC.PALPN ---
Palliative Progress Note - Subjective Remains on BiPap, lethargic, limited ability to respond to questions secondary to respiratory exertion, able to give short one-two word answers intermittently. Denies nausea/vomiting. Continues to complain of weakness with significant shortness of breath. - Objective Vital Signs: Vital Signs - Most Recent Temp Pulse Resp BP Pulse Ox 97.6 F 106 H 34 H 92 L 06/24/19 02:11 06/24/19 07:32 06/24/19 07:32 06/24/19 08:00 - Physical Exam Constitutional: moderate distress HEENT: moist MMs, EOMI Respiratory: tachypnea Deviation from normal: labored with accessory muscle use, adventicious and diminished sounds Cardiovascular: RRR Neurological: moves all 4 limbs Skin: cap refill <2 seconds - Assessment (1) Palliative care encounter Code(s): Z51.5 - ENCOUNTER FOR PALLIATIVE CARE Current Visit: Yes Status: Acute (2) Acute and chronic respiratory failure with hypoxia Code(s): J96.21 - ACUTE AND CHRONIC RESPIRATORY FAILURE WITH HYPOXIA Current Visit: No Status: Acute (3) COPD exacerbation Code(s): J44.1 - CHRONIC OBSTRUCTIVE PULMONARY DISEASE W (ACUTE) EXACERBATION Current Visit: No Status: Acute - Plan Plan: Not tolerating removal of BiPap. Continues on comfort measures. Visited with Halle Hu patient daughter and her granddaughter who are at bedside. Therapeutic listening Visited with Halle at length and discussed the following *continue comfort measures *family meeting with patient son later this morning/afternoon when he arrives to discuss disease trajectory and decline *consider hospice coming in later this afternoon for GIP [90] minutes spent on this encounter with >50% of the time in counseling and coordination of care.
[2019-06-24] MEDS: Isosorbide Mononitrate (ER) 30 MG TAB PO SCH (09:06)
[2019-06-24] MEDS: FLUoxetine HCl 20 MG CAP PO SCH (09:06)
[2019-06-24] MEDS: Enoxaparin Sodium 40 MG/0.4 ML SYRINGE SC SCH (09:06)
[2019-06-24] MEDS: Aspirin Chewable 81 MG TAB PO SCH (09:07)
--- NOTE | 2019-06-24 09:23 | PRG ---
DATE OF SERVICE: 06/24/2019 SUBJECTIVE: Ms. Frausto remains on BiPAP. She looks much more comfortable today compared to yesterday. She apparently did sleep some last night. OBJECTIVE: VITAL SIGNS: Her temperature is 97.6, pulse 87, blood pressure 127/67, O2 saturation 91%. She is sitting up in bed. She is able to communicate with her family through the BiPAP mask. HEENT: Shows bitemporal wasting. NECK: No adenopathy or JVD. LUNGS: Diffuse wheezing best heard posteriorly. CARDIAC: S1, S2. Regular. ABDOMEN: Soft. EXTREMITIES: No edema. LABORATORY DATA: No labs were done today. ASSESSMENT: 1. Severe, end-stage chronic obstructive pulmonary disease with exacerbation of symptoms. 2. Acute on chronic hypoxic and hypercapnic respiratory failure requiring noninvasive mechanical ventilation. PLAN: Continue BiPAP, steroids, nebulization treatments, antibiotics, and generalized comfort measures. The family seems much more calm about the situation today as opposed to yesterday. Appreciate palliative care speaking with the family. Job ID: [id number]
--- NOTE | 2019-06-24 09:28 | PRG ---
DATE OF SERVICE: 06/24/2019 SUBJECTIVE: Ms. Frausto recently presented with increased shortness of breath in addition to chest pressure and tightness. She states she no longer has chest pressure and tightness. She currently has BiPAP in place. She continues to have difficulty with breathing and decreased oxygenation. She has a previous history of severe COPD in addition to CAD, status post stent placement and TAVR. PHYSICAL EXAMINATION: GENERAL: Patient is a pleasant female who is in no acute distress. The patient appears their stated age. VITAL SIGNS: Blood pressure 127/67, pulse 102, and O2 saturation 91 on BiPAP. NEUROLOGIC: The patient is alert and oriented x3 with no focal neurologic deficits. HEENT: Sclerae without icterus. Mouth has moist mucous membranes with normal pallor. NECK: No JVD. Carotid upstroke brisk. No bruits bilaterally. LUNGS: Decreased breath sounds noted bilaterally with decreased air movement. BACK: No scoliosis or kyphosis. CARDIAC: Regular rate and rhythm with normal S1 and S2. No S3 or S4 noted. No significant rubs, murmurs, thrills, or gallops noted throughout the precordium. PMI is not displaced. There is no parasternal heave. ABDOMEN: Soft, nontender, nondistended. No peritoneal signs present. No hepatosplenomegaly. No abnormal striae. EXTREMITIES: 2+ femoral and 2+ dorsalis pedis pulses. No cyanosis, clubbing, or edema. SKIN: No gross abnormalities. PERTINENT LABS: None today. Telemetry monitoring shows left bundle-branch block (chronic). IMPRESSION: 1. Shortness of breath. 2. Elevated troponin. 3. Coronary artery disease. 4. Status post stent placement. 5. Status post transcatheter aortic valve replacement. RECOMMENDATIONS: Ms. Frausto' primary issue is likely related to COPD with recent exacerbation. Her elevated troponin is type 2 ME. At this point, continue with supportive care. No plans to proceed with any further intervention. Hopefully, she is able to wean off her BiPAP. Palliative Care has been consulted. If she is not able to wean off BiPAP, may need to consider hospice. She is not interested in any further heroic means or measures. Job ID: [id number]
[2019-06-24] MEDS: Azithromycin 250 MG in Sodium Chloride 0.9% 250 ML 250 ML IVPB SCH (10:48)
[2019-06-24] MEDS: Lorazepam 2 MG/ML VIAL SLOW IVP PRN (11:26)
--- NOTE | 2019-06-24 14:21 | PDOC.HOSPP ---
- Subjective Subjective: Seen and examined. Pulmonary status is tenuous on continuous BiPAP. I am told by patient's family and palliative care nurse practitioner that this is improved since yesterday with regard to her pulmonary status. Short-term prognosis for this patient is poor. Agree with less aggressive measures. I discussed the case with patient's family who states that she would never want to be intubated or live on life support. They are considering general inpatient hospice. - Objective Vital Signs & Weight: Vital Signs (12 hours) Temp Pulse Resp Pulse Ox 06/24/19 14:07 138 H 38 H 86 L 06/24/19 10:43 112 H 36 H 91 L 06/24/19 10:42 114 H 34 H 91 L 06/24/19 10:29 97.6 F 06/24/19 08:00 92 L 06/24/19 07:32 106 H 34 H 91 L 06/24/19 07:30 102 H 33 H 91 L 06/24/19 02:30 84 21 H 93 L Weight Weight 116 lb 14.4 oz Most Recent Monitor Data Heart Rate from ECG 117 NIBP 153/88 NIBP BP-Mean 109 Respiration from ECG 28 SpO2 90 I&O: 06/23/19 06/24/19 06/25/19 06:59 06:59 06:59 Intake Total 260 377.5 50 Output Total 600 0 Balance -340 377.5 50 Result Diagrams: 06/22/19 07:00 06/22/19 07:00 Radiology Reviewed by me: Yes (CXR) Hospitalist ROS - Review of Systems All other systems reviewed; all pertinent +/- noted in HPI/Subj - Medication Medications: Active Medications Generic Name Dose Route Start Last Admin Trade Name Freq PRN Reason Stop Dose Admin Albuterol/Ipratropium 3 ml 06/23/19 14:30 06/24/19 14:07 Duoneb NEB 3 ml [id number] SONIA Administration Aspirin 81 mg 06/23/19 09:00 06/24/19 09:07 Aspirin Chewable PO 81 mg DAILY SONIA Administration Enoxaparin Sodium 40 mg 06/23/19 09:00 06/24/19 09:06 Lovenox SC 40 mg 0900 SONIA Administration Fluoxetine HCl 20 mg 06/23/19 09:00 06/24/19 09:06 Prozac PO 20 mg DAILY SONIA Administration Azithromycin 250 mg/ Sodium 250 mls @ 250 mls/hr 06/23/19 11:00 06/24/19 10: 48 Chloride IVPB 250 mls 1100 SONIA Administration Isosorbide Mononitrate 30 mg 06/23/19 09:00 06/24/19 09:06 Imdur Er PO 30 mg DAILY SONIA Administration Lorazepam 1 mg 06/23/19 10:43 06/24/19 11:26 Ativan SLOW IVP 1 mg Q4H PRN Administration Anxiety/Agitation Methylprednisolone Sodium Succinate 40 mg 06/22/19 14:00 06/24/19 09:06 Solu-Medrol IVP 40 mg 0200,0800,1400,2000 SONIA Administration Morphine Sulfate 2 mg 06/23/19 16:28 06/23/19 17:41 Morphine SLOW IVP 2 mg Q1H PRN Administration SOB or Anxiety Pantoprazole Sodium 40 mg 06/23/19 09:00 06/24/19 09:07 Protonix PO 40 mg DAILY SONIA Administration Promethazine HCl 12.5 mg 06/23/19 10:43 06/23/19 11:08 Phenergan IM/IV 12.5 mg Q6H PRN Administration Nausea/Vomiting Rosuvastatin Calcium 20 mg 06/22/19 21:00 06/23/19 20:56 Crestor PO Not Given HS SONIA - Exam General Appearance: ill appearing Eye: anicteric sclera ENT: normocephalic atraumatic, moist mucosa Neck: supple, symmetric, no lymphadenopathy Heart: no murmur, no gallops, no rubs Respiratory: rhonchi, tachypneic, wheezes Respiratory - other findings: poor air movement even on bipap. Patient cannot breath at this rate forLong Gastrointestinal: soft, non-tender, no guarding, no rigidity Extremities: no edema Skin: no lesions, no rashes Neurological: cranial nerve grossly intact, no focal deficits Musculoskeletal: generalized weakness Psychiatric: oriented to person, oriented to place, lethargic Hosp A/P (1) Acute and chronic respiratory failure with hypoxia Code(s): J96.21 - ACUTE AND CHRONIC RESPIRATORY FAILURE WITH HYPOXIA Status: Acute (2) Anemia Code(s): D64.9 - ANEMIA, UNSPECIFIED Status: Acute (3) COPD exacerbation Code(s): J44.1 - CHRONIC OBSTRUCTIVE PULMONARY DISEASE W (ACUTE) EXACERBATION Status: Acute (4) Lung nodule Code(s): R91.1 - SOLITARY PULMONARY NODULE Status: Acute (5) NSTEMI (non-ST elevated myocardial infarction) Code(s): I21.4 - NON-ST ELEVATION (NSTEMI) MYOCARDIAL INFARCTION Status: Acute (6) COPD (chronic obstructive pulmonary disease) Status: Chronic (7) Dyslipidemia Code(s): E78.5 - HYPERLIPIDEMIA, UNSPECIFIED Status: Chronic (8) GERD (gastroesophageal reflux disease) Code(s): K21.9 - GASTRO-ESOPHAGEAL REFLUX DISEASE WITHOUT ESOPHAGITIS Status: Chronic (9) RLS (restless legs syndrome) Status: Chronic - Plan Plan: intermediate medical care floor palliative care consultation, recommendations appreciated patient is on BiPAP continuously and pulmonary status is tenuous patient's family states that she would never want to live on life support and she is a DNR. At this point I agree with less aggressive measures including do not attempt for says state and do not intubate, the likelihood of the patient would ever come off the ventilator is poor and she would likely end up with a tracheostomy with severe end-stage COPD. Breathing treatments pain control anxiety control agree with general inpatient hospice care
[2019-06-24] MEDS ORDERED: Acetaminophen 1,000 MG in Premix Bag 1 BAG IVPB PRN (19:03)
[2019-06-24] MEDS: Rosuvastatin 20 MG TAB PO SCH (22:01)
[2019-06-25] MEDS: methylPREDNISolone Sod Succ 40 MG VIAL IVP SCH ×4 (03:26→20:33)
[2019-06-25] MEDS: Aspirin Chewable 81 MG TAB PO SCH (08:24)
[2019-06-25] MEDS: Isosorbide Mononitrate (ER) 30 MG TAB PO SCH (08:25)
[2019-06-25] MEDS: FLUoxetine HCl 20 MG CAP PO SCH (08:25)
[2019-06-25] MEDS: Enoxaparin Sodium 40 MG/0.4 ML SYRINGE SC SCH (08:27)
[2019-06-25] MEDS: Morphine 2 MG/ML SYRINGE SLOW IVP PRN ×4 (10:13→22:02)
[2019-06-25] MEDS: Azithromycin 250 MG in Sodium Chloride 0.9% 250 ML 250 ML IVPB SCH (10:17)
--- NOTE | 2019-06-25 11:11 | PRG ---
DATE OF SERVICE: 06/25/2019 SUBJECTIVE: Ms. Frausto looks comfortable, but she is clearly encephalopathic. She has family surrounding her in the room. They seem comfortable with the fact that she will soon. They are trying to decide when to discontinue the BiPAP. OBJECTIVE: VITAL SIGNS: Temperature 96.6, pulse 94, blood pressure 140/76, and O2 saturation 95%. HEENT: Unremarkable. NECK: No adenopathy or JVD. LUNGS: Diminished breath sounds throughout with poor respiratory movement. CARDIAC: S1, S2. Regular. ABDOMEN: Soft. EXTREMITIES: No edema. ASSESSMENT: 1. End-stage chronic obstructive pulmonary disease. 2. Myocardial infarction. PLAN: It does not appear that she will recover from this. I would favor withdrawal of BiPAP and palliative care with morphine and Ativan as needed. I do believe the family needs a little more time as they are dealing with grieving issues. I told them withdrawal of care will be based on their time table and not mine. Job ID: [id number]
--- NOTE | 2019-06-25 14:38 | PDOC.HOSPP ---
- Subjective Subjective: Seen and examined. Patient pulmonary status remains tenuous. Family at bedside, all questions answered in detail - family are happy with plan of care. I recommended to family that air hunger would best be alleviated with morphine. Ativan should be used for anxiety as needed. Patients family understand that she is does not have much longer. - Objective Vital Signs & Weight: Vital Signs (12 hours) Temp Pulse Resp Pulse Ox 06/25/19 14:23 99 20 94 L 06/25/19 14:22 94 20 95 06/25/19 11:14 94 20 94 L 06/25/19 11:11 97.4 F L 06/25/19 07:36 99 32 H 90 L 06/25/19 07:35 98 33 H 89 L 06/25/19 07:27 96.6 F L 06/25/19 07:14 92 L 06/25/19 05:51 97 F L 06/25/19 04:31 96.3 F L 06/25/19 03:37 24 H 93 L 06/25/19 03:36 85 22 H 93 L Weight Weight 116 lb 14.4 oz Most Recent Monitor Data Heart Rate from ECG 95 NIBP 144/62 NIBP BP-Mean 89 Respiration from ECG 21 SpO2 95 I&O: 06/24/19 06/25/19 06/26/19 06:59 06:59 06:59 Intake Total 377.5 150 Output Total 0 0 Balance 377.5 150 Result Diagrams: 06/22/19 07:00 06/22/19 07:00 Hospitalist ROS - Review of Systems All other systems reviewed; all pertinent +/- noted in HPI/Subj - Medication Medications: Active Medications Generic Name Dose Route Start Last Admin Trade Name Freq PRN Reason Stop Dose Admin Albuterol/Ipratropium 3 ml 06/23/19 14:30 06/25/19 14:22 Duoneb NEB 3 ml [id number] SONIA Administration Aspirin 81 mg 06/23/19 09:00 06/25/19 08:24 Aspirin Chewable PO Not Given DAILY SONIA Enoxaparin Sodium 40 mg 06/23/19 09:00 06/25/19 08:27 Lovenox SC 40 mg 0900 SONIA Administration Fluoxetine HCl 20 mg 06/23/19 09:00 06/25/19 08:25 Prozac PO Not Given DAILY SONIA Azithromycin 250 mg/ Sodium 250 mls @ 250 mls/hr 06/23/19 11:00 06/25/19 10: 17 Chloride IVPB 250 mls 1100 SONIA Administration Isosorbide Mononitrate 30 mg 06/23/19 09:00 06/25/19 08:25 Imdur Er PO Not Given DAILY SONIA Lorazepam 1 mg 06/23/19 10:43 06/24/19 11:26 Ativan SLOW IVP 1 mg Q4H PRN Administration Anxiety/Agitation Methylprednisolone Sodium Succinate 40 mg 06/22/19 14:00 06/25/19 13:48 Solu-Medrol IVP 40 mg 0200,0800,1400,2000 SONIA Administration Morphine Sulfate 2 mg 06/23/19 16:28 06/25/19 13:48 Morphine SLOW IVP 2 mg Q1H PRN Administration SOB or Anxiety Pantoprazole Sodium 40 mg 06/23/19 09:00 06/25/19 08:26 Protonix PO Not Given DAILY SONIA Promethazine HCl 12.5 mg 06/23/19 10:43 06/23/19 11:08 Phenergan IM/IV 12.5 mg Q6H PRN Administration Nausea/Vomiting Rosuvastatin Calcium 20 mg 06/22/19 21:00 06/24/19 22:01 Crestor PO Not Given HS [facility] - Exam General Appearance: ill appearing Eye: PERRL ENT: normocephalic atraumatic, moist mucosa Neck: supple, symmetric, no lymphadenopathy Heart: no murmur, no gallops, no rubs Respiratory: rhonchi, tachypneic, wheezes Respiratory - other findings: Poor air movement bilaterally despite BIPAP Gastrointestinal: soft, non-tender, no guarding, no rigidity Extremities: no edema Skin: no lesions, no rashes Neurological: cranial nerve grossly intact, normal sensation to touch, no new deficit Musculoskeletal: generalized weakness Psychiatric: not oriented, somnolent Hosp A/P (1) Acute and chronic respiratory failure with hypoxia Code(s): J96.21 - ACUTE AND CHRONIC RESPIRATORY FAILURE WITH HYPOXIA Status: Acute (2) Anemia Code(s): D64.9 - ANEMIA, UNSPECIFIED Status: Acute (3) COPD exacerbation Code(s): J44.1 - CHRONIC OBSTRUCTIVE PULMONARY DISEASE W (ACUTE) EXACERBATION Status: Acute (4) Lung nodule Code(s): R91.1 - SOLITARY PULMONARY NODULE Status: Acute (5) NSTEMI (non-ST elevated myocardial infarction) Code(s): I21.4 - NON-ST ELEVATION (NSTEMI) MYOCARDIAL INFARCTION Status: Acute (6) COPD (chronic obstructive pulmonary disease) Status: Chronic (7) Dyslipidemia Code(s): E78.5 - HYPERLIPIDEMIA, UNSPECIFIED Status: Chronic (8) GERD (gastroesophageal reflux disease) Code(s): K21.9 - GASTRO-ESOPHAGEAL REFLUX DISEASE WITHOUT ESOPHAGITIS Status: Chronic (9) RLS (restless legs syndrome) Status: Chronic - Plan Plan: intermediate medical care floor palliative care consultation, recommendations appreciated patient is on BiPAP continuously and pulmonary status is tenuous patient's family states that she would never want to live on life support and she is a DNR. At this point I agree with less aggressive measures including do not attempt resuscitation and do not intubate, the likelihood of the patient would ever come off the ventilator is poor and she would likely end up with a tracheostomy with severe end-stage COPD. Breathing treatments On IV ABX and IV steroids pain control, recommend liberal use of morphine anxiety control, recommend liberal use of ativan agree with general inpatient hospice care
--- NOTE | 2019-06-25 14:49 | PRG ---
DATE OF SERVICE: 06/25/2019 SUBJECTIVE: Ms. Frausto' status has not improved. She continues to be on BiPAP. She appears to be encephalopathic today versus yesterday. She does awaken to voice, but not able to answer questions. OBJECTIVE: GENERAL: Patient is a pleasant female who is in no acute distress. The patient appears their stated age. She currently has a BiPAP in place and is encephalopathic. VITAL SIGNS: Blood pressure 144/62, pulse 99, respirations 20. NEUROLOGIC: The patient is alert and oriented x3 with no focal neurologic deficits. HEENT: Sclerae without icterus. Mouth has moist mucous membranes with normal pallor. NECK: No JVD. Carotid upstroke brisk. No bruits bilaterally. LUNGS: Clear to auscultation with unlabored respirations. BACK: No scoliosis or kyphosis. CARDIAC: Regular rate and rhythm with normal S1 and S2. No S3 or S4 noted. No significant rubs, murmurs, thrills, or gallops noted throughout the precordium. PMI is not displaced. There is no parasternal heave. ABDOMEN: Soft, nontender, nondistended. No peritoneal signs present. No hepatosplenomegaly. No abnormal striae. EXTREMITIES: 2+ femoral and 2+ dorsalis pedis pulses. No cyanosis, clubbing, or edema. SKIN: No gross abnormalities. PERTINENT LABORATORY DATA: Hemoglobin 14.8, hematocrit 46.2. Creatinine 0.85. IMPRESSION: 1. Chronic obstructive pulmonary disease exacerbation. 2. Respiratory failure. 3. Type 2 myocardial infarction. RECOMMENDATIONS: I had a long discussion with the family today. I did not feel she is going to recover from this episode. She appears to have worsened overnight. She is using accessory muscles, which she was not using yesterday. She also appears to be moving less air. I did tell the family this would likely be her demise. The patient at this point is not ready for withdrawal. From my standpoint, I have no further recommendations. Please re-consult if changes occur. Job ID: [id number]
[2019-06-25] MEDS: Lorazepam 2 MG/ML VIAL SLOW IVP PRN ×2 (18:10→23:55)
[2019-06-25] MEDS: Rosuvastatin 20 MG TAB PO SCH (21:48)
[2019-06-26] MEDS: methylPREDNISolone Sod Succ 40 MG VIAL IVP SCH ×3 (02:05→10:58)
[2019-06-26] MEDS: Morphine 2 MG/ML SYRINGE SLOW IVP PRN ×2 (02:05→06:37)
[2019-06-26] MEDS: Lorazepam 2 MG/ML VIAL SLOW IVP PRN ×8 (04:07→17:30)
[2019-06-26 07:11] VITALS: TEMP 99.3
[2019-06-26] MEDS: Aspirin Chewable 81 MG TAB PO SCH (07:54)
[2019-06-26] MEDS: FLUoxetine HCl 20 MG CAP PO SCH (07:54)
[2019-06-26] MEDS: Isosorbide Mononitrate (ER) 30 MG TAB PO SCH (07:55)
[2019-06-26] MEDS: Enoxaparin Sodium 40 MG/0.4 ML SYRINGE SC SCH (08:39)
[2019-06-26] MEDS ORDERED: Midazolam HCl 2 mg/2 ml Vial SLOW IVP PRN (08:47)
[2019-06-26] MEDS ORDERED: Morphine 2 MG/ML SYRINGE SLOW IVP PRN (08:47)
[2019-06-26] MEDS ORDERED: fentaNYL 50 mcg/hour Patch TD SCH (09:00)
[2019-06-26] MEDS: Azithromycin 250 MG in Sodium Chloride 0.9% 250 ML 250 ML IVPB SCH (10:57)
--- NOTE | 2019-06-26 11:02 | PRG ---
DATE OF SERVICE: 06/26/2019 SUBJECTIVE: The patient is on BiPAP. She is somnolent. She will not arouse to deep painful stimuli. OBJECTIVE: VITAL SIGNS: Temperature 99.3, pulse 106, blood pressure 135/54, O2 saturation 96%. HEENT: Unremarkable. NECK: No adenopathy or JVD. LUNGS: Diminished breath sounds throughout. CARDIOVASCULAR: S1 and S2. Regular. ABDOMEN: Soft. EXTREMITIES: No edema. 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 PLAN: Compassionate care with morphine, Ativan as needed. Family will stop BiPAP later today. Job ID: [id number]
[2019-06-26] MEDS: Morphine 4 MG/ML VIAL SLOW IVP PRN ×8 (12:37→17:31)
--- NOTE | 2019-06-26 14:38 | PDOC.HOSPP ---
- Subjective Subjective: Seen and examined. Patient on BiPAP, pulmonary status remains very tenuous. Patient encephalopathy. Does not respond to voice, withdrawals from mild noxious stimuli momentarily. Non verbal. Discuss case with daughter who is power of [place] attorney at bedside. Recommended fentanyl transdermal patch which the daughter agreed to. Patient with tachycardia and nonverbal cues that she is still in pain and suffering. Will continue IV pushes of morphine, Ativan, versed as needed. Patient's daughter who is power of [place] attorney states that they are planning to terminally removed the BiPAP today and plan for her to pass in the hospital, hospice consultation requested for general inpatient hospice. - Objective Vital Signs & Weight: Vital Signs (12 hours) Temp Pulse Resp Pulse Ox 06/26/19 10:43 102 H 21 H 96 06/26/19 07:58 95 06/26/19 07:27 106 H 22 H 93 L 06/26/19 07:26 106 H 20 93 L 06/26/19 07:11 99.3 F 06/26/19 03:16 98.4 F Weight Weight 116 lb 14.4 oz Most Recent Monitor Data Heart Rate from ECG 100 NIBP 130/51 NIBP BP-Mean 77 Respiration from ECG 15 SpO2 94 I&O: 06/25/19 06/26/19 06/27/19 06:59 06:59 05:59 Intake Total 150 Output Total 0 Balance 150 Result Diagrams: 06/22/19 07:00 06/22/19 07:00 Radiology Reviewed by me: Yes Hospitalist ROS - Review of Systems ROS unobtainable: due to mental status - Medication Medications: Active Medications Generic Name Dose Route Start Last Admin Trade Name Rockyq PRN Reason Stop Dose Admin Albuterol/Ipratropium 3 ml 06/23/19 14:30 06/26/19 10:43 Duoneb NEB 3 ml [id number] SONIA Administration Aspirin 81 mg 06/23/19 09:00 06/26/19 07:54 Aspirin Chewable PO Not Given DAILY SONIA Enoxaparin Sodium 40 mg 06/23/19 09:00 06/26/19 08:39 Lovenox SC 40 mg 0900 SONIA Administration Fentanyl 50 mcg 06/26/19 09:00 06/26/19 09:11 Duragesic TD 50 mcg Q3D SONIA Administration Fluoxetine HCl 20 mg 06/23/19 09:00 06/26/19 07:54 Prozac PO Not Given DAILY [facility] Azithromycin 250 mg/ Sodium 250 mls @ 250 mls/hr 06/23/19 11:00 06/26/19 10: 57 Chloride IVPB Not Given 1100 [facility] Isosorbide Mononitrate 30 mg 06/23/19 09:00 06/26/19 07:55 Imdur Er PO Not Given DAILY [facility] Lorazepam 1 mg 06/26/19 10:49 06/26/19 12:37 Ativan SLOW IVP 1 mg Q30MIN PRN Administration Anxiety/Agitation Methylprednisolone Sodium Succinate 40 mg 06/22/19 14:00 06/26/19 10:58 Solu-Medrol IVP Not Given 0200,0800,1400,2000 [facility] Morphine Sulfate 4 mg 06/26/19 10:49 06/26/19 12:37 Morphine SLOW IVP 4 mg Q15MIN PRN Administration .SOB or Anxiety Pantoprazole Sodium 40 mg 06/23/19 09:00 06/26/19 07:55 Protonix PO Not Given DAILY [facility] Promethazine HCl 12.5 mg 06/23/19 10:43 06/23/19 11:08 Phenergan IM/IV 12.5 mg Q6H PRN Administration Nausea/Vomiting Rosuvastatin Calcium 20 mg 06/22/19 21:00 06/25/19 21:48 Crestor PO Not Given [facility] - Exam General Appearance: ill appearing Eye: PERRL ENT: dry oral mucosa Neck: supple, symmetric, no lymphadenopathy Heart: no murmur, no gallops, no rubs Heart - other findings: tachycarida Respiratory: rhonchi, tachypneic, wheezes Respiratory - other findings: Poor air movement on BIPAP Gastrointestinal: soft, non-tender, no guarding, no rigidity Extremities: no edema Skin: no lesions, no rashes Neurological: cranial nerve grossly intact, no focal deficits Musculoskeletal: generalized weakness Psychiatric: not oriented, somnolent Hosp A/P (1) Acute and chronic respiratory failure with hypoxia Code(s): J96.21 - ACUTE AND CHRONIC RESPIRATORY FAILURE WITH HYPOXIA Status: Acute (2) Anemia Code(s): D64.9 - ANEMIA, UNSPECIFIED Status: Acute (3) COPD exacerbation Code(s): J44.1 - CHRONIC OBSTRUCTIVE PULMONARY DISEASE W (ACUTE) EXACERBATION Status: Acute (4) Lung nodule Code(s): R91.1 - SOLITARY PULMONARY NODULE Status: Acute (5) NSTEMI (non-ST elevated myocardial infarction) Code(s): I21.4 - NON-ST ELEVATION (NSTEMI) MYOCARDIAL INFARCTION Status: Acute (6) COPD (chronic obstructive pulmonary disease) Status: Chronic (7) Dyslipidemia Code(s): E78.5 - HYPERLIPIDEMIA, UNSPECIFIED Status: Chronic (8) GERD (gastroesophageal reflux disease) Code(s): K21.9 - GASTRO-ESOPHAGEAL REFLUX DISEASE WITHOUT ESOPHAGITIS Status: Chronic (9) RLS (restless legs syndrome) Status: Chronic - Plan Plan: intermediate medical care floor Hospice consultation, recommendations appreciated - General inpatient hospice planned palliative care consultation, recommendations appreciated patient is on BiPAP continuously and pulmonary status is tenuous - POA daughter is planning for terminal removal of BIPAP today after family have said good buy patient's family states that she would never want to live on life support and she is a DNR. At this point I agree with less aggressive measures including do not attempt resuscitation and do not intubate, the likelihood of the patient would ever come off the ventilator is poor and she would likely end up with a tracheostomy with severe end-stage COPD. Breathing treatments Fentanyl patch On IV ABX and IV steroids pain control, recommend liberal use of morphine anxiety control, recommend liberal use of ativan agree with general inpatient hospice care
--- NOTE | 2019-06-28 10:25 | DIS ---
DATE OF ADMISSION: 06/22/2019 DATE OF DISCHARGE: 06/26/2019 REASON FOR HOSPITALIZATION: Shortness of breath. SIGNIFICANT FINDINGS: The patient was found to have end-stage COPD and unfortunately from cardiopulmonary arrest of natural causes from end-stage COPD. PROCEDURES PERFORMED AND TREATMENTS RENDERED: The patient had maximum medical therapy including admitted to intermediate medical care floor, evaluation and treatment by Pulmonology and Cardiology, and maximum medical therapy including IV steroids, IV antibiotics, and breathing treatments. The patient on continuous BiPAP therapy and unfortunately she from cardiopulmonary arrest peacefully on the day of 06/26/2019. CONDITION ON DISCHARGE: . SPECIFIC INSTRUCTIONS FOR THE PATIENT/FAMILY: 1. The patient recommended safe for transport immediately to [place] of family selecting. 2. The patient recommended to have all arrangements set up by [facility] of family selecting for further plan of care. DISCHARGE MEDICATIONS: Not applicable. HOSPITAL COURSE: Ms. Frausto was a very pleasant 78-year-old female, who presented to [facility] on 06/22/2019. Please see full history and physical, consultation notes and progress notes from all specialists for details. The patient was admitted to [facility] for continuous BiPAP. The patient was seen and evaluated by Cardiology, Pulmonology, and Palliative Care-please see full consultation and progress notes for details. The patient was diagnosed with severe end-stage COPD. The patient has had numerous COPD exacerbations in the past. I took over the care for the patient on 06/24/2019. At that point, the patient remained on continuous BiPAP, she was encephalopathic and confused at times. The patient had maximum medical therapy including IV antibiotics, IV steroids, breathing treatments, and despite all maximum efforts, the patient's status did not improve. Palliative Care spending time with the patient and family including the daughter who is power of finance attorney. I explicitly informed the grave situation to the patient's daughter and gave ample time for questions and all questions were answered in detail. After long discussions between myself and the daughter, the daughter who is p.o. power of finance attorney states that her mother would never want to live like this, she would never want to live on a ventilator, and if there is no chance for meaningful recovery, her mother would wish to peacefully. On 06/26/2019, after discussion with the patient's daughter who is power of finance attorney, we placed a fentanyl patch on the patient. We gave ample amounts of anxiolytic medication and pain medication and the patient peacefully from cardiopulmonary arrest. Expiration time is 1736. The patient safe for transport to home of family selection for all further plan of care on burial. Greater than 45 minutes spent coordinating care and discharge process for this patient. Job ID: [id number]
--- NOTE | 2019-06-28 20:47 | PQF ---
ALEX FLYNN ERIK [id number] SEAMUS DELACRUZ [id number] CLINICAL DOCUMENTATION CLARIFICATION FORM: POST DISCHARGE Addendum to original discharge summary date: ____ Late entry note date: __ DATE: 06/28/19 ATTN: Sal Garner Please exercise your independent, professional judgment in responding to the clarification form. Clinical indicators are provided on the bottom of this form for your review Can you please further specify the specificity of Encephalopathy Please check appropriate box(s): [ XX ] Encephalopathy: Type: [ XX ] Acute [ ] Subacute [ ] Chronic Etiology: [ ] Hypertensive [ ] Metabolic [ ] Toxic [ XX ] Hypoxic [ ] Unspecified [ ] in the setting of underlying dementia [ ] Other (please specify) [ ] Transient Alteration of Awareness [ ] Other diagnosis please specify [ ] Unable to determine In addition, please specify: Present on Admission (POA): [ ] Yes [ XX ] No [ ] Unable to determine For continuity of documentation, please document condition throughout progress notes and discharge summary. Thank You. CLINICAL INDICATORS - SIGNS / SYMPTOMS / LABS Hospitalist PN 06/24 Dr. Whittaker pg.1- presented with increased shortness of breath in addition to chest pressure and tightness PN 06/25 Dr. Whittaker pg.1- she currently has BiPAP in place and is encephalopathic PN 06/25 Dr. Whittaker pg.1- patient is alert and oriented x3 with no focal neurologic deficits Hospitalist PN 06/25 Dr. Garner pg.1- Patient pulmonary status remains tenuous Hospitalist PN Dr. Garner 06/25 pg.1- Patient encephalopathy,. Does not response to voice, withdrawals from mild noxious stimuli RISK FACTORS COPD exacerbation- Hospitalist PN Dr. Garner pg.5 Acute on chronic respiratory failure with hypoxia-Hospitalist PN Dr. Garner pg.5 NSTEMI-Hospitalist PN Dr. Garner pg.5 CAD- H and P pg.1 Hypertension- H and P pg.1 78 yo female TREATMENTS: BiPAP- H and P pg.1 IV Fluids- MAR Palliative Care- 06/23 (This form is maintained as a part of the permanent medical record) 2014 [place]. All Rights Reserved Norm [email or web address] [not provided] MTDD
== END 2019-06-26 17:36 | disposition expired | DRG 190 ==
LOC: ERS 06:46 → ERHOLD 08:33 → IMCU/EMU 18:10
PROVIDERS: ADMIT Internal Medicine; ATTEND Internal Medicine
PROC: 5A09457 Assistance with Respiratory Ventilation, 24-96 Consecutive Hours, Continuous Positive Airway Pressure (ICD-10-PCS; principal; 2019-06-22)
DX: J44.1 Chronic obstructive pulmonary disease with (acute) exacerbation (principal); J96.21 Acute and chronic respiratory failure with hypoxia; I21.4 Non-ST elevation (NSTEMI) myocardial infarction; G93.41 Metabolic encephalopathy; J96.22 Acute and chronic respiratory failure with hypercapnia; E87.2 Acidosis; Z66 Do not resuscitate; Z51.5 Encounter for palliative care; I46.8 Cardiac arrest due to other underlying condition; I10 Essential (primary) hypertension; I25.10 Atherosclerotic heart disease of native coronary artery without angina pectoris; F32.9 Major depressive disorder, single episode, unspecified; E78.5 Hyperlipidemia, unspecified; I44.7 Left bundle-branch block, unspecified; I35.0 Nonrheumatic aortic (valve) stenosis; D64.9 Anemia, unspecified; K21.9 Gastro-esophageal reflux disease without esophagitis; G25.81 Restless legs syndrome; F41.9 Anxiety disorder, unspecified; K55.20 Angiodysplasia of colon without hemorrhage; R91.1 Solitary pulmonary nodule; Z90.49 Acquired absence of other specified parts of digestive tract; Z99.81 Dependence on supplemental oxygen; Z95.5 Presence of coronary angioplasty implant and graft; Z95.2 Presence of prosthetic heart valve; Z87.891 Personal history of nicotine dependence; I25.2 Old myocardial infarction; Z88.1 Allergy status to other antibiotic agents; Z88.8 Allergy status to other drugs, medicaments and biological substances; Z79.52 Long term (current) use of systemic steroids; Z79.899 Other long term (current) drug therapy; Z79.82 Long term (current) use of aspirin
CPT/HCPCS: 36415; 71045; 80053; 80061; 82330; 82550; 82553; 82803; 82805; 83605; 83880; 84484; 85025; 87040; 93005; 93306; 94640; 94660; 94760; 96361; 96365; 96375; 96376; J0131; J0456; J1650; J2060; J2270; J2550; J2920; J2930; J3475; J7050; J7611; J7620